=== PATIENT | male | born 1950 | race Caucasian/White ===

== ENCOUNTER 2024-11-28 12:25 | Inpatient (IN) ==
[2024-11-28 14:23] LABS: Basophils # (auto) 0.06 K/uL (0.00-0.20); Basophils % (auto) 0.5 %; Eosinophils # (auto) 0.02 K/uL (0.00-0.50); Eosinophils % (auto) 0.2 %; Hematocrit (blood only) 34.9 % (42.0-52.0); Hemoglobin 12.1 g/dl (14.0-18.0); Immature Granulocytes # (auto) 0.05 K/uL (0.01-0.20); Immature Granulocytes % (auto) 0.4 %; Lymphocytes # (auto) 1.46 K/uL (1.20-3.40); Lymphocytes % (auto) 11.1 %; Mean Corpuscular Hemoglobin 30.6 pg (25.0-34.0); Mean Corpuscular Hgb Conc 34.7 g/dL (32.0-36.0); Mean Corpuscular Volume 88.4 fL (80.0-100.0); Mean Platelet Volume 9.9 fL (9.4-12.4); Monocytes # (auto) 2.03 K/uL (0.11-0.59); Monocytes % (auto) 15.5 %; Neutrophils # (auto) 9.51 K/uL (1.40-6.50); Neutrophils % (auto) 72.3 %; Platelet Count 386 K/uL (130-400); RDW Coefficient of Variation 11.9 % (11.5-14.5); RDW Standard Deviation 38.6 fL (36.4-46.3); Red Blood Count 3.95 M/uL (4.70-6.10); White Blood Count 13.13 K/ul (4.8-10.8)
[2024-11-28 14:39] LABS: Albumin Globulin Ratio 0.9 (0.9-2); Albumin Level 3.3 gm/dl (3.4-5.0); BUN Creatinine Ratio 19.3 (10-20); Bilirubin,Total 0.9 mg/dl (0.2-1.0); Calcium 8.7 mg/dl (8.6-10.3); Creatinine Clr Calc Pharmacy 57.2 ml/min; Globulin 3.8 gm/dl (2.5-4.0); Potassium 4.4 mmol/L (3.5-5.1); Total Protein 7.1 gm/dl (6.0-8.3)
--- NOTE | 2024-11-28 14:58 | Emergency Department Note ---
History of Present Illness General Chief complaint: Toe Injury/Pain Stated complaint: INFECTED TOE ON FOOT Time Seen by Provider: 11/28/24 14:46 History of Present Illness This is a 74-year-old male that presents to the emergency department via private vehicle with complaints of "infected toe on left foot". The patient notes that for some time now he has been having issues with the left second toe. He notes chronic hammertoe/deformity to the left second toe however over the past few months has noted a slow ooze/infection to the left second toe. He then notes that over the winter his boots were a bit tight and that was when the skin opened up overlying the left second toe. Then he notes on November 09 he fell on the ice and the foot struck the ground with some force. He notes that there was some bruising to the left foot. He notes swelling as well. He has had intermittent fever over the past few days that seem to worsen last night. He notes chills as well. He notes history of diabetes but believes that his levels improved therefore did stop medication for this about a year ago. He did have recent cough, cold, congestion but that seem to improve mild lingering cough. No chest pain or shortness of breath. He denies taking any prescription medication at this time. Home Medications Medication Instructions Recorded Confirmed Type ascorbic acid (vitamin C) 1,000 mg 1 g PO DAILY 04/26/23 11/28/24 History tablet (Vitamin C) cholecalciferol (vitamin D3) 125 125 mcg PO DAILY 04/26/23 11/28/24 History mcg (5,000 unit) tablet (Vitamin D3) ondansetron 4 mg disintegrating 4 mg PO Q8H PRN nausea and 04/26/23 11/28/24 Rx tablet vomiting #30 tabs vitamin E 268 mg (400 unit) capsule 0 mg PO DAILY 04/26/23 11/28/24 History Allergies Allergy/AdvReac Type Severity Reaction Status Date / Time onion AdvReac Severe SEVERE GI Verified 11/28/24 11:39 UPSET--BLOATING, GAS DISCOMFORT Past Med/Surg History Problem List (Updated 11/28/24 @ 21:45 by Frederic Cortés PA-C) Hyperglycemia (Acute) Acute osteomyelitis of toe of left foot (Acute) Diabetes Medical History No pertinent family history Surgical History No pertinent past surgical history Social History Smoking Status: Never smoker Preferred Language: Hungarian Feels Safe at Home: Yes Review of Systems A total of 10 systems reviewed and were otherwise negative Physical Exam Vital Signs Vital Signs - 24 hr 11/28/24 12:30 11/28/24 15:45 Temperature 36.4 C L Temperature Source Temporal Artery Scan Pulse Rate 87 Pulse Rate [Apical] 84 Pulse Rhythm Regular Pulse Rhythm [Apical] Regular Pulse Strength Normal Respiratory Rate 20 18 Respiratory Effort / Characteristics Non-Labored Spontaneous Non-Labored Respiratory Depth Normal Normal Blood Pressure 197/79 H Blood Pressure [Left Arm] 207/104 H Blood Pressure Mean 118 Blood Pressure Mean [Left Arm] 138 Blood Pressure Position Sitting Pulse Oximetry 97 98 Oxygen Delivery Method Room Air Room Air Sepsis Recent Fever Within 48 Hours No Sepsis New/Unexplained Change in Mental Status N/A Sepsis Action Taken by Nursing No Action Required VITAL SIGNS - Vital signs and nursing notes were reviewed. Hypertensive, otherwise stable and afebrile. GENERAL -74-year-old male appearing his stated age who is in no acute distress. Communicates well with provider and answers questions appropriately. SKIN -the left second toe is edematous, with a dusky hue, erythema and yellowish pustule type appearance overlying much of the digit. This erythema and edema tracks into the dorsum of the left foot and into the distal left lower extremity. There are several open wounds to the left second toe. HEAD - NC/AT. EYES - PERRL with EOMI bilaterally. Sclera anicteric. NECK - No nuchal rigidity. LUNGS - CTA CARDIAC - RRR EXTREMITIES - No clubbing or peripheral cyanosis. Skin as above. Patient with minimal sensation to the left second toe. No tenderness to palpation. Left dorsalis pedis pulse within normal limits. +5/5 strength noted in UE/LE bilaterally. NEUROLOGIC - Cranial nerves grossly intact. PSYCH -alert, oriented and pleasant on exam. Course Administered Medications Insulin Human Regular 250 (units/ Sodium Chloride) 250 mls @ 1.8 mls/hr IV .Q24H [facility]; Protocol Stop: 12/28/24 15:29 Last Titration: 11/28/24 20:31 Dose: 3 units/hr, 3 mls/hr Documented By: VIKTORIA Co-signed By: BHAVYA Titration: 11/28/24 19:38 Dose: 2.5 units/hr, 2.5 mls/hr Documented By: VIKTORIA Co-signed By: HECTOR Admin: 11/28/24 18:16 Dose: 1.8 units/hr, 1.8 mls/hr Documented By: LEVON Co-signed By: HECTOR Insulin Aspart (Insulin Aspart Per Unit Charge) 0 units SC ACHS VIKKI Stop: 12/28/24 16:29 Last Admin: 11/28/24 18:13 Dose: Not Given Documented By: LEVON Discontinued Medications Cefepime HCl (Maxipime 2000mg) 2,000 mg in 20 mls @ 5 mls/min IV NOW STA; Protocol Stop: 11/28/24 15:12 Last Admin: 11/28/24 15:43 Dose: 5 mls/min Documented By: LEVON Vancomycin HCl 1,500 mg/ (Sodium Chloride) 530 mls @ 200 mls/hr IV NOW ONE Stop: 11/28/24 17:47 Last Infusion: 11/28/24 19:40 Dose: Infused Documented By: Admin: 11/28/24 15:55 Dose: 200 mls/hr Documented By: LEVON Losartan Potassium (Losartan Potassium 25 Mg Tab) 25 mg PO ONE ONE Stop: 11/28/24 17:01 Last Admin: 11/28/24 18:15 Dose: 25 mg Documented By: LEVON Miscellaneous (Stat Iv Infusion Titration Per Protocol) 1 each N/A NOW STA Stop: 11/28/24 15:24 Last Admin: 11/28/24 18:07 Dose: Not Given Documented By: LEVON Medical Decision Making Laboratory Data 11/28/24 13:44 11/28/24 18:37 Lab Results 11/28/24 11/28/24 Range/Units 13:44 15:38 WBC 13.13 H (4.8-10.8) K/ul RBC 3.95 L (4.70-6.10) M/uL Hgb 12.1 L (14.0-18.0) g/dl Hct 34.9 L (42.0-52.0) % MCV 88.4 (80.0-100.0) fL MCH 30.6 (25.0-34.0) pg MCHC 34.7 (32.0-36.0) g/dL RDW Std Deviation 38.6 (36.4-46.3) fL RDW Coeff of Mechelle 11.9 (11.5-14.5) % Plt Count 386 (130-400) K/uL MPV 9.9 (9.4-12.4) fL Immature Gran % (Auto) 0.4 % Neut % (Auto) 72.3 % Lymph % (Auto) 11.1 % Harris % (Auto) 15.5 % Eos % (Auto) 0.2 % Baso % (Auto) 0.5 % Neut # (Auto) 9.51 H (1.40-6.50) K/uL Lymph # (Auto) 1.46 (1.20-3.40) K/uL Harris # (Auto) 2.03 H (0.11-0.59) K/uL Eos # (Auto) 0.02 (0.00-0.50) K/uL Baso # (Auto) 0.06 (0.00-0.20) K/uL Immature Gran # (Auto) 0.05 (0.01-0.20) K/uL Sodium 129 L (136-145) mmol/L Potassium 4.4 (3.5-5.1) mmol/L Chloride 97 L (98-107) mmol/L Carbon Dioxide 27 (21-32) mmol/L Anion Gap 5 (3-11) BUN 22 (6-23) mg/dl Creatinine 1.14 (0.6-1.4) mg/dl Est Cr Clr Drug Dosing 57.2 ml/min eGFR 66.65 BUN/Creatinine Ratio 19.3 (10-20) Glucose 516 H* (70-99(Fasting)) mg/dl Estimat Average Glucose 352 mg/dl Hemoglobin A1c 13.9 H (4.5-5.6) % Lactate 1.3 (0.4-2.0) mmol/L Calcium 8.7 (8.6-10.3) mg/dl Total Bilirubin 0.9 (0.2-1.0) mg/dl AST 14 (13-39) U/L ALT 11 (7-52) U/L Alkaline Phosphatase 124 H (34-104) U/L Total Protein 7.1 (6.0-8.3) gm/dl Albumin 3.3 L (3.4-5.0) gm/dl Globulin 3.8 (2.5-4.0) gm/dl Albumin/Globulin Ratio 0.9 (0.9-2) Procalcitonin 0.32 (0-0.5) ng/ml Imaging Data Radiologist's Impression: Foot X-Ray 11/28/24 14:34 XR foot LT min 3V routine CLINICAL HISTORY: ULCER/WOUND LEFT 2ND TOE X 1 MONTH COMPARISON: None FINDINGS: There are osseous destructive changes at the distal aspect of the second proximal phalanx and proximal aspect of the second middle phalanx. No other osseous destructive change seen. On the lateral view there is an osseous density dorsal to the distal aspect of the second proximal phalanx consistent with displaced fracture fragment from the osseous destruction. No other fracture seen. IMPRESSION: Osteomyelitis at the second toe. ACT 112: Negative or not required by law. Electronically signed by: Jerel Lewis M.D. 11/28/2024 3:57 PM Chest X-Ray 11/28/24 15:22 EXAM: XR chest 1V portable CLINICAL HISTORY: Fever TECHNIQUE: X-ray images of the chest were obtained in AP portable projections. COMPARISON: No prior studies available for comparison. FINDINGS: Pulmonary Parenchyma: Bilateral increased bronchovascular markings No evidence of conslifation, Collapse No evidence of pleural effusion or pleural thickening. Heart and Mediastinum: Heart size and shape are normal. No mediastinal widening or masses. No hilar or mediastinal lymphadenopathy. Bony Thorax: Bony thorax appears intact without fractures or deformities. Soft Tissues: Soft tissues overlying the chest wall are unremarkable. IMPRESSION: 1. Bilateral increased bronchovascular markings (nonspecific) correlate clinically. 2. No acute pulmonary abnormalties Electronically signed by Jean Lacey 11-28-2024 4:50 PM [facility] Narrative Patient was seen and evaluated as above in room A02. Review was performed of triage nursing notes and vital signs. Patient presents for evaluation of left second toe infection. Unfortunately the left toe appears to be in overall poor condition with proximal tracking erythema and edema. The patient has noted intermittent fevers over the past few days. Options of care were discussed with the patient. The patient was seen during a period of elevated volume and acuity in emergency department and already had laboratory studies prior to me evaluating the patient. There is leukocytosis 13.13. Anemia with hemoglobin of 12.1. There is hyponatremia at 129. However glucose was noted to be 516, therefore corrected sodium is closer to 136. IV insulin drip ordered which is felt to be the best way to proceed with management of the hyperglycemia as the patient will require admission. I did verify the order with ED clinical pharmacist. No evidence of kidney or liver failure. I did add on a hemoglobin A1c which is pending at this time. Lactate is normal. Procalcitonin detectable but within normal range at 0.32. Blood culture pending. Wound culture of the left second toe dorsal region was obtained. Empiric antibiotics to include IV vancomycin and IV cefepime also ordered. I did add on a left foot x-ray which does unfortunately confirm the left second toe osteomyelitis. Chest x-ray was also obtained and negative for infiltrate. I do believe that further evaluation and management in the inpatient setting is warranted. Case discussed with the hospitalist service. Please refer to further documentation regarding his stay. I did place gauze overlying left second toe followed by gentle gauze wrap to protect the area pending further assessment in the hospital. In the evaluation and treatment of this patient the following differential diagnoses were entertained: Fracture, dislocation, subluxation, contusion, sprain, strain, osteomyelitis, among others. Impression & Plan Acute osteomyelitis of toe of left foot, Hyperglycemia Discharge Plan Visit Data Chief Complaint: Toe Injury/Pain Stated Complaint: INFECTED TOE ON FOOT ED Provider: Ruben Hyde ED Midlevel Provider: Frederic Cortés Discharge Problem: Acute osteomyelitis of toe of left foot, Hyperglycemia Patient Disposition: Admitted As Inpatient Condition: Good Discharge Instructions Interventions: ED Discharge Assessment Last Done: 11/28/24 19:51
[2024-11-28] MEDS ORDERED: VANCOMYCIN CONSULT ACTIVE PRN (15:09)
[2024-11-28] MEDS ORDERED: DEXTROSE 50% 50 ML SYRINGE IV PRN (15:30)
[2024-11-28] MEDS ORDERED: CARBOHYDRATES FOR HYPOGLYCEMIA PO PRN (15:30)
[2024-11-28] MEDS ORDERED: GLUCOSE 40% GEL 15 GM TUBE PO PRN (15:30)
[2024-11-28] MEDS ORDERED: GLUCAGON FOR INJ 1 MG VIAL SQ PRN (15:30)
[2024-11-28] MEDS ORDERED: GLUCOSE 10 TAB/TUBE PO PRN (15:30)
[2024-11-28] MEDS: CEFEPIME 2000MG 2,000 MG/20 ML SYR IV STA (15:43)
[2024-11-28] MEDS: VANCOMYCIN HCL 1,500 MG in SODIUM CHLORIDE 0.9% 500 ML IV ONE (15:55)
--- NOTE | 2024-11-28 15:58 | XRay Report ---
XR foot LT min 3V routine CLINICAL HISTORY: ULCER/WOUND LEFT 2ND TOE X 1 MONTH COMPARISON: None FINDINGS: There are osseous destructive changes at the distal aspect of the second proximal phalanx and proximal aspect of the second middle phalanx. No other osseous destructive change seen. On the la teral view there is an osseous density dorsal to the distal aspect of the second proximal phalanx con sistent with displaced fracture fragment from the osseous destruction. No other fracture seen. IMPRESSION: Osteomyelitis at the second toe. ACT 112: Negative or not required by law. Electronically signed by: Jerel Lewis M.D. 11/28/2024 3:57 PM
[2024-11-28] MEDS ORDERED: PHARMACY GLYCEMIC MGMT CONSULT PRN (16:29)
[2024-11-28] MEDS ORDERED: ONDANSETRON INJ 2 MG/ML 2 ML VIAL IV PRN (16:33)
[2024-11-28] MEDS ORDERED: MAGNESIUM HYDROXIDE SUSP 30 ML UDC PO PRN (16:33)
[2024-11-28] MEDS ORDERED: ALUMINUM/MAGNESIUM SUSP 30 ML UDC PO PRN (16:33)
--- NOTE | 2024-11-28 16:43 | History & Physical Report ---
Date of Service November 28, 2024 Assessment & Plan (1) Diabetes: Plan Left toe osteomyelitis: WBC elevated, not in sepsis at presentation. Continue with cefepime and vancomycin, add probiotic, podiatry consult. Follow admitting blood and wound culture. Infectious disease consult once we have more results. Uncontrolled diabetes/hyperglycemia: Patient was started on insulin drip, will consult glycemic pharmacy for help w/ Mx. Consult nurse informatics educator, patient has self discontinued insulin in the past. Start carbohydrate consistent diet. Will need diabetic medications and extensive educations prior to discharge. A1c pending Pseudohyponatremia: In the setting of hyperglycemia, expect to improve with improvement in blood glucose level. Repeat BMP 7 PM and in AM. Hypertensive urgency: Blood pressure elevated, the highest noted in the ED was 197/79 mmHg. Will add losartan, as needed blood pressure medication. Blood pressure medication needs to be uptitrated. Will get echo given lack of prior PCP follow-ups. DVT prophylaxis: Heparin subcu Full code History of Present Illness Chief Complaint: left 2nd toe infection Primary Care Provider: LINDA BOWLES 74-year-old male with prior history of diabetes diagnosed few years ago, on insulin for less than a year and self discontinued the insulin presents to the ED with complaint of worsening left second toe infection. Patient reports he has hammertoe with chronic injury at the top of left second toe with occasional small drainages. He fell on November 09 and hit his left shoulder and left toe, denies head trauma and loss of consciousness. He tripped on ice. Patient reports initially there was blue and blacl discoloration at the base of the second toe, and he sustained wound at the site of prior chronic injury which worsened for a few days and then got better. He started having fever since November 11 daily, and he had no fever since last few days [employer] and again developed fever last evening, measured at one 101.9F. Now the blue-black discoloration has disappeared and the wound has enlarged in the second toe with purulent drainage, erythematous second toe spreading to the entire foot along with swelling. Patient reports that he never feels pain in his lower extremities since many years. So he does not complain of pain. Patient denies nausea/vomiting/belly pain/acute changes in bowel or bladder or appetite habits. Patient denies tobacco use/alcohol use/recreational drug use. Full code Patient self discontinued his insulin in the past, is not on any oral medications at home per pt. Plan of care discussed with the patient and his at bedside who voiced understanding and was agreeable. Allergies Allergy/AdvReac Type Severity Reaction Status Date / Time onion AdvReac Severe SEVERE GI Verified 11/28/24 11:39 UPSET--BLOATING, GAS DISCOMFORT Home Medications Medication Instructions Recorded Confirmed Type ascorbic acid (vitamin C) 1,000 mg 1 g PO DAILY 04/26/23 11/28/24 History tablet (Vitamin C) cholecalciferol (vitamin D3) 125 125 mcg PO DAILY 04/26/23 11/28/24 History mcg (5,000 unit) tablet (Vitamin D3) ondansetron 4 mg disintegrating 4 mg PO Q8H PRN nausea and 04/26/23 11/28/24 Rx tablet vomiting #30 tabs vitamin E 268 mg (400 unit) capsule 0 mg PO DAILY 04/26/23 11/28/24 History Past Med/Surg History Problem List Diabetes Medical History No pertinent family history Surgical History No pertinent past surgical history Social History Smoking Status: Never smoker Preferred Language: Setswana Feels Safe at Home: Yes Review of Systems Review of Systems: Negative otherwise mentioned in HPI. Physical Exam Physical Exam: GENERAL: Alert and oriented x3. NAD, on RA. HEENT: No pallor, no icterus. Pupils equal, round and reactive to light. Oral mucosa moist. NECK: No JVD, no neck masses. HEART: S1 and S2 heard. Regular rate and rhythm. No murmur, no gallop. RESPIRATORY SYSTEM: Normal AP diameter. No accessory muscle use. No wheezing, no crackles. ABDOMEN: Soft, bowel sounds present, nontender, no distention. CENTRAL NERVOUS SYSTEM: No facial droop. Speech is clear. Obeys simple commands. Moves extremities. EXTREMITIES: RLE - No edema, no erythema seen. LLE: left 2nd toe w/ purulent wound, erythema/swelling spreading to the foot and distal leg. Non tender. Lt shoulder w/ tender rom, LUE weak. Results & Data Results & Data Vital Signs (Past 12 Hours) Vital Signs Temp Pulse Resp BP Pulse Ox O2 Del Method 11/28/24 12:30 36.4 C L 87 20 197/79 H 97 Room Air
--- NOTE | 2024-11-28 17:11 | XRay Report ---
EXAM: XR chest 1V portable CLINICAL HISTORY: Fever TECHNIQUE: X-ray images of the chest were obtained in AP portable projections. COMPARISON: No prior studies available for comparison. FINDINGS: Pulmonary Parenchyma: Bilateral increased bronchovascular markings No evidence of conslifation, Collapse No evidence of pleural effusion or pleural thickening. Heart and Mediastinum: Heart size and shape are normal. No mediastinal widening or masses. No hilar or mediastinal lymphadenopathy. Bony Thorax: Bony thorax appears intact without fractures or deformities. Soft Tissues: Soft tissues overlying the chest wall are unremarkable. IMPRESSION: 1. Bilateral increased bronchovascular markings (nonspecific) correlate clinically. 2. No acute pulmonary abnormalties Electronically signed by Jean Lacey 11-28-2024 4:50 PM
[2024-11-28] MEDS: STAT IV Infusion **Titration per Protocol STA (18:07)
[2024-11-28] MEDS: INSULIN ASPART PER UNIT CHARGE SC SCH (18:13)
[2024-11-28] MEDS: LOSARTAN POTASSIUM 25 MG TAB PO ONE (18:15)
[2024-11-28] MEDS: INSULIN REGULAR 250 UNITS in SODIUM CHLORIDE 0.9% 247.5 ML IV SCH (18:16)
[2024-11-28 19:10] LABS: Calcium 8.7 mg/dl (8.6-10.3); Creatinine Clr Calc Pharmacy 59.2 ml/min; Potassium 4.2 mmol/L (3.5-5.1)
[2024-11-28 20:44] LABS: Estimated Average Glucose 352 mg/dl; Hemoglobin A1C 13.9 % (4.5-5.6)
[2024-11-28] MEDS: MODERATE STRESS LEVEL ONE (21:59)
[2024-11-28] MEDS: INSULIN PROTOCOL GOAL RANGE ONE (22:00)
[2024-11-28] MEDS: DICLOFENAC SOD 1% GEL 100 GM TUBE EXT SCH (22:32)
[2024-11-28] MEDS: HEPARIN SOD 5,000 UNIT/0.5 ML VIAL SQ SCH (22:32)
[2024-11-28] MEDS: CEFEPIME 2000MG 2,000 MG/20 ML SYR IV SCH (22:33)
[2024-11-28] MEDS: hydrALAZINE HCL 20 MG/ML VIAL IV PRN (22:34)
[2024-11-29 00:22] LABS: BUN Creatinine Ratio 19.3 (10-20); Calcium 8.1 mg/dl (8.6-10.3); Creatinine Clr Calc Pharmacy 55.9 ml/min; Potassium 3.8 mmol/L (3.5-5.1)
[2024-11-29] MEDS: VANCOMYCIN HCL 1,250 MG in SODIUM CHLORIDE 0.9% 250 ML IV SCH (04:09)
[2024-11-29 06:59] LABS: Hemoglobin 10.5 g/dl (14.0-18.0); Mean Corpuscular Hemoglobin 30.5 pg (25.0-34.0); Mean Corpuscular Volume 87.2 fL (80.0-100.0); Mean Platelet Volume 9.6 fL (9.4-12.4); Platelet Count 332 K/uL (130-400); RDW Coefficient of Variation 11.9 % (11.5-14.5); RDW Standard Deviation 38.2 fL (36.4-46.3); Red Blood Count 3.44 M/uL (4.70-6.10); White Blood Count 12.83 K/ul (4.8-10.8)
[2024-11-29 07:31] LABS: BUN Creatinine Ratio 19.4 (10-20); Calcium 7.8 mg/dl (8.6-10.3); Creatinine Clr Calc Pharmacy 61.9 ml/min; Magnesium 1.8 mg/dl (1.7-2.4); Phosphorus 3.2 mg/dl (2.5-4.9); Potassium 3.6 mmol/L (3.5-5.1)
[2024-11-29] MEDS ORDERED: LANTUS PER UNIT CHARGE SC SCH (07:45)
[2024-11-29] MEDS: ADVANCED PROBIOTIC 625 MG CAPSULE PO SCH (08:16)
[2024-11-29] MEDS: LOSARTAN POTASSIUM 25 MG TAB PO SCH (08:16)
--- NOTE | 2024-11-29 08:28 | Hospitalist Progress Note ---
Date of Service November 29, 2024 Assessment & Plan (1) Diabetes: Plan Left toe osteomyelitis Bacteremia (secondary to above): WBC elevated Started on cefepime and vancomycin on admission, will cont. for now Podiatry consulted and discussed with - plan for OR/ amputation later today Blood cultx - Gram posit. cocci in clusters wound culture - posit. for Staph aureus will repeat blood cultx and will consult w/ ID Uncontrolled diabetes/hyperglycemia: Current A1c 13.9% patient has self discontinued insulin in the past Patient was started on insulin drip initially in ED, now stopped Glycemic pharmacy consulted clinical informatics educator consulted - recommend to DC on Metformin BID and once daily Lantus His testing supplies are over the counter so he won't need a script for that. He will need a script for insulin pen needles (32 gauge x 5/32" 4 mm) with his Lantus pen. can get him a savings card for $35.00 per month for the Lantus and bring it to him on Monday. DE will be back Monday for more teaching. Pseudohyponatremia: In the setting of hyperglycemia Current Na 136, cont. to monitor Hypertensive urgency: Blood pressure elevated, the highest noted in the ED was 197/79 mmHg. losartan added on admission, as needed blood pressure medication. Blood pressure medication needs to be uptitrated. echo ordered given lack of prior PCP follow-ups. Echo - LV is normal in size. severe concentric LVH. LV wall motion is normal. LV EF 65-70%. Grade 1 diastolic dysfunction. Aortic valve sclerosis mild, without significant aortic valvular stenosis. The aortic root is normal in size DVT prophylaxis: Heparin subcu Full code Admission and Anticipated Discharge Date Admission Date: November 28, 2024 Subjective Pt seen in follow up of 2nd toe osteo, uncontrolled DM (hyperglycemia) Pt lying in bed in NAD made npo early AM pt is feeling well, in good spirits, present at the bedside no chest pain, shortness of breath, no abd pain, n/v Discussed w/ podiatry - plan for OR/ amputation later today blood cultx posit. Review of Systems Review of Systems: All systems reviewed & are unremarkable except as noted in Subjective Physical Exam Physical Exam: GENERAL: Alert and oriented x3. NAD, on RA. HEENT: NC/AT. Pupils equal, round and reactive to light. Oral mucosa moist. NECK: No JVD, no neck masses. HEART: Regular rate and rhythm. No murmur RESPIRATORY: Normal AP diameter. No accessory muscle use. No wheezing, no crackles. ABDOMEN: Soft, bowel sounds present, nontender, no distention. NEURO: awake, alert, oriented, answers appropriately. No facial droop. Speech is clear. Moves extremities. EXTREMITIES: RLE - No edema, no erythema seen. LLE: left 2nd toe w/ purulent wound, erythema/swelling spreading to the foot and distal leg. Non tender. Lt shoulder w/ tender rom, LUE weak. Results & Data Results & Data Vital Signs (Past 12 Hours) Vital Signs Temp Pulse Pulse Pulse Resp BP BP 11/29/24 07:40 37.2 C 70 14 178/76 H 11/29/24 07:36 37.0 C 73 18 160/79 H 11/29/24 05:45 82 11/29/24 03:23 37.7 C H 78 18 163/79 H 11/28/24 23:01 82 11/28/24 22:07 37.6 C H 86 18 198/90 H Pulse Ox O2 Del Method 11/29/24 07:40 98 Room Air 11/29/24 07:36 97 Room Air 11/29/24 05:45 11/29/24 03:23 98 Room Air 11/28/24 23:01 11/28/24 22:07 97 Room Air Laboratory Results 11/29/24 11/29/24 11/29/24 Range/Units 07:56 06:59 06:21 WBC 12.83 H (4.8-10.8) K/ul RBC 3.44 L (4.70-6.10) M/uL Hgb 10.5 L (14.0-18.0) g/dl Hct 30.0 L (42.0-52.0) % MCV 87.2 (80.0-100.0) fL MCH 30.5 (25.0-34.0) pg MCHC 35.0 (32.0-36.0) g/dL RDW Std Deviation 38.2 (36.4-46.3) fL RDW Coeff of Mechelle 11.9 (11.5-14.5) % Plt Count 332 (130-400) K/uL MPV 9.6 (9.4-12.4) fL Immature Gran % (Auto) % Neut % (Auto) % Lymph % (Auto) % [place] % (Auto) % Eos % (Auto) % Baso % (Auto) % Neut # (Auto) (1.40-6.50) K/uL Lymph # (Auto) (1.20-3.40) K/uL [place] # (Auto) (0.11-0.59) K/uL Eos # (Auto) (0.00-0.50) K/uL Baso # (Auto) (0.00-0.20) K/uL Immature Gran # (Auto) (0.01-0.20) K/uL Sodium 136 (136-145) mmol/L Potassium 3.6 (3.5-5.1) mmol/L Chloride 104 (98-107) mmol/L Carbon Dioxide 27 (21-32) mmol/L Anion Gap 5 (3-11) BUN 20 (6-23) mg/dl Creatinine 1.03 (0.6-1.4) mg/dl Est Cr Clr Drug Dosing 61.9 ml/min eGFR 75.28 BUN/Creatinine Ratio 19.4 (10-20) Glucose 110 H (70-99(Fasting)) mg/dl POC Glucose 115 H 114 H (70-99) mg/dl Estimat Average Glucose mg/dl Hemoglobin A1c (4.5-5.6) % Lactate (0.4-2.0) mmol/L Calcium 7.8 L (8.6-10.3) mg/dl Phosphorus 3.2 (2.5-4.9) mg/dl Magnesium 1.8 (1.7-2.4) mg/dl Total Bilirubin (0.2-1.0) mg/dl AST (13-39) U/L ALT (7-52) U/L Alkaline Phosphatase (34-104) U/L Total Protein (6.0-8.3) gm/dl Albumin (3.4-5.0) gm/dl Globulin (2.5-4.0) gm/dl Albumin/Globulin Ratio (0.9-2) Procalcitonin (0-0.5) ng/ml 11/29/24 11/29/24 11/29/24 Range/Units 05:05 03:05 02:05 WBC (4.8-10.8) K/ul RBC (4.70-6.10) M/uL Hgb (14.0-18.0) g/dl Hct (42.0-52.0) % MCV (80.0-100.0) fL MCH (25.0-34.0) pg MCHC (32.0-36.0) g/dL RDW Std Deviation (36.4-46.3) fL RDW Coeff of Mechelle (11.5-14.5) % Plt Count (130-400) K/uL MPV (9.4-12.4) fL Immature Gran % (Auto) % Neut % (Auto) % Lymph % (Auto) % [place] % (Auto) % Eos % (Auto) % Baso % (Auto) % Neut # (Auto) (1.40-6.50) K/uL Lymph # (Auto) (1.20-3.40) K/uL [place] # (Auto) (0.11-0.59) K/uL Eos # (Auto) (0.00-0.50) K/uL Baso # (Auto) (0.00-0.20) K/uL Immature Gran # (Auto) (0.01-0.20) K/uL Sodium (136-145) mmol/L Potassium (3.5-5.1) mmol/L Chloride (98-107) mmol/L Carbon Dioxide (21-32) mmol/L Anion Gap (3-11) BUN (6-23) mg/dl Creatinine (0.6-1.4) mg/dl Est Cr Clr Drug Dosing ml/min eGFR BUN/Creatinine Ratio (10-20) Glucose (70-99(Fasting)) mg/dl POC Glucose 126 H 112 H 120 H (70-99) mg/dl Estimat Average Glucose mg/dl Hemoglobin A1c (4.5-5.6) % Lactate (0.4-2.0) mmol/L Calcium (8.6-10.3) mg/dl Phosphorus (2.5-4.9) mg/dl Magnesium (1.7-2.4) mg/dl Total Bilirubin (0.2-1.0) mg/dl AST (13-39) U/L ALT (7-52) U/L Alkaline Phosphatase (34-104) U/L Total Protein (6.0-8.3) gm/dl Albumin (3.4-5.0) gm/dl Globulin (2.5-4.0) gm/dl Albumin/Globulin Ratio (0.9-2) Procalcitonin (0-0.5) ng/ml 11/29/24 11/29/24 11/28/24 Range/Units 01:04 00:04 23:47 WBC (4.8-10.8) K/ul RBC (4.70-6.10) M/uL Hgb (14.0-18.0) g/dl Hct (42.0-52.0) % MCV (80.0-100.0) fL MCH (25.0-34.0) pg MCHC (32.0-36.0) g/dL RDW Std Deviation (36.4-46.3) fL RDW Coeff of Mechelle (11.5-14.5) % Plt Count (130-400) K/uL MPV (9.4-12.4) fL Immature Gran % (Auto) % Neut % (Auto) % Lymph % (Auto) % [place] % (Auto) % Eos % (Auto) % Baso % (Auto) % Neut # (Auto) (1.40-6.50) K/uL Lymph # (Auto) (1.20-3.40) K/uL [place] # (Auto) (0.11-0.59) K/uL Eos # (Auto) (0.00-0.50) K/uL Baso # (Auto) (0.00-0.20) K/uL Immature Gran # (Auto) (0.01-0.20) K/uL Sodium 133 L (136-145) mmol/L Potassium 3.8 (3.5-5.1) mmol/L Chloride 104 (98-107) mmol/L Carbon Dioxide 24 (21-32) mmol/L Anion Gap 5 (3-11) BUN 22 (6-23) mg/dl Creatinine 1.14 (0.6-1.4) mg/dl Est Cr Clr Drug Dosing 55.9 ml/min eGFR 66.65 BUN/Creatinine Ratio 19.3 (10-20) Glucose 153 H (70-99(Fasting)) mg/dl POC Glucose 135 H 134 H (70-99) mg/dl Estimat Average Glucose mg/dl Hemoglobin A1c (4.5-5.6) % Lactate (0.4-2.0) mmol/L Calcium 8.1 L (8.6-10.3) mg/dl Phosphorus (2.5-4.9) mg/dl Magnesium (1.7-2.4) mg/dl Total Bilirubin (0.2-1.0) mg/dl AST (13-39) U/L ALT (7-52) U/L Alkaline Phosphatase (34-104) U/L Total Protein (6.0-8.3) gm/dl Albumin (3.4-5.0) gm/dl Globulin (2.5-4.0) gm/dl Albumin/Globulin Ratio (0.9-2) Procalcitonin (0-0.5) ng/ml 11/28/24 11/28/24 11/28/24 Range/Units 23:08 22:04 20:17 WBC (4.8-10.8) K/ul RBC (4.70-6.10) M/uL Hgb (14.0-18.0) g/dl Hct (42.0-52.0) % MCV (80.0-100.0) fL MCH (25.0-34.0) pg MCHC (32.0-36.0) g/dL RDW Std Deviation (36.4-46.3) fL RDW Coeff of Mechelle (11.5-14.5) % Plt Count (130-400) K/uL MPV (9.4-12.4) fL Immature Gran % (Auto) % Neut % (Auto) % Lymph % (Auto) % [place] % (Auto) % Eos % (Auto) % Baso % (Auto) % Neut # (Auto) (1.40-6.50) K/uL Lymph # (Auto) (1.20-3.40) K/uL [place] # (Auto) (0.11-0.59) K/uL Eos # (Auto) (0.00-0.50) K/uL Baso # (Auto) (0.00-0.20) K/uL Immature Gran # (Auto) (0.01-0.20) K/uL Sodium (136-145) mmol/L Potassium (3.5-5.1) mmol/L Chloride (98-107) mmol/L Carbon Dioxide (21-32) mmol/L Anion Gap (3-11) BUN (6-23) mg/dl Creatinine (0.6-1.4) mg/dl Est Cr Clr Drug Dosing ml/min eGFR BUN/Creatinine Ratio (10-20) Glucose (70-99(Fasting)) mg/dl POC Glucose 180 H 222 H 402 H* (70-99) mg/dl Estimat Average Glucose mg/dl Hemoglobin A1c (4.5-5.6) % Lactate (0.4-2.0) mmol/L Calcium (8.6-10.3) mg/dl Phosphorus (2.5-4.9) mg/dl Magnesium (1.7-2.4) mg/dl Total Bilirubin (0.2-1.0) mg/dl AST (13-39) U/L ALT (7-52) U/L Alkaline Phosphatase (34-104) U/L Total Protein (6.0-8.3) gm/dl Albumin (3.4-5.0) gm/dl Globulin (2.5-4.0) gm/dl Albumin/Globulin Ratio (0.9-2) Procalcitonin (0-0.5) ng/ml 11/28/24 11/28/24 11/28/24 Range/Units 19:25 19:18 18:37 WBC (4.8-10.8) K/ul RBC (4.70-6.10) M/uL Hgb (14.0-18.0) g/dl Hct (42.0-52.0) % MCV (80.0-100.0) fL MCH (25.0-34.0) pg MCHC (32.0-36.0) g/dL RDW Std Deviation (36.4-46.3) fL RDW Coeff of Mechelle (11.5-14.5) % Plt Count (130-400) K/uL MPV (9.4-12.4) fL Immature Gran % (Auto) % Neut % (Auto) % Lymph % (Auto) % [place] % (Auto) % Eos % (Auto) % Baso % (Auto) % Neut # (Auto) (1.40-6.50) K/uL Lymph # (Auto) (1.20-3.40) K/uL [place] # (Auto) (0.11-0.59) K/uL Eos # (Auto) (0.00-0.50) K/uL Baso # (Auto) (0.00-0.20) K/uL Immature Gran # (Auto) (0.01-0.20) K/uL Sodium 130 L (136-145) mmol/L Potassium 4.2 (3.5-5.1) mmol/L Chloride 100 (98-107) mmol/L Carbon Dioxide 23 (21-32) mmol/L Anion Gap 7 (3-11) BUN 22 (6-23) mg/dl Creatinine 1.10 (0.6-1.4) mg/dl Est Cr Clr Drug Dosing 59.2 ml/min eGFR 69.57 BUN/Creatinine Ratio 20.0 (10-20) Glucose 410 H* (70-99(Fasting)) mg/dl POC Glucose 434 H* 454 H* (70-99) mg/dl Estimat Average Glucose mg/dl Hemoglobin A1c (4.5-5.6) % Lactate (0.4-2.0) mmol/L Calcium 8.7 (8.6-10.3) mg/dl Phosphorus (2.5-4.9) mg/dl Magnesium (1.7-2.4) mg/dl Total Bilirubin (0.2-1.0) mg/dl AST (13-39) U/L ALT (7-52) U/L Alkaline Phosphatase (34-104) U/L Total Protein (6.0-8.3) gm/dl Albumin (3.4-5.0) gm/dl Globulin (2.5-4.0) gm/dl Albumin/Globulin Ratio (0.9-2) Procalcitonin (0-0.5) ng/ml 11/28/24 11/28/24 Range/Units 15:38 13:44 WBC 13.13 H (4.8-10.8) K/ul RBC 3.95 L (4.70-6.10) M/uL Hgb 12.1 L (14.0-18.0) g/dl Hct 34.9 L (42.0-52.0) % MCV 88.4 (80.0-100.0) fL MCH 30.6 (25.0-34.0) pg MCHC 34.7 (32.0-36.0) g/dL RDW Std Deviation 38.6 (36.4-46.3) fL RDW Coeff of Mechelle 11.9 (11.5-14.5) % Plt Count 386 (130-400) K/uL MPV 9.9 (9.4-12.4) fL Immature Gran % (Auto) 0.4 % Neut % (Auto) 72.3 % Lymph % (Auto) 11.1 % [place] % (Auto) 15.5 % Eos % (Auto) 0.2 % Baso % (Auto) 0.5 % Neut # (Auto) 9.51 H (1.40-6.50) K/uL Lymph # (Auto) 1.46 (1.20-3.40) K/uL [place] # (Auto) 2.03 H (0.11-0.59) K/uL Eos # (Auto) 0.02 (0.00-0.50) K/uL Baso # (Auto) 0.06 (0.00-0.20) K/uL Immature Gran # (Auto) 0.05 (0.01-0.20) K/uL Sodium 129 L (136-145) mmol/L Potassium 4.4 (3.5-5.1) mmol/L Chloride 97 L (98-107) mmol/L Carbon Dioxide 27 (21-32) mmol/L Anion Gap 5 (3-11) BUN 22 (6-23) mg/dl Creatinine 1.14 (0.6-1.4) mg/dl Est Cr Clr Drug Dosing 57.2 ml/min eGFR 66.65 BUN/Creatinine Ratio 19.3 (10-20) Glucose 516 H* (70-99(Fasting)) mg/dl POC Glucose (70-99) mg/dl Estimat Average Glucose 352 mg/dl Hemoglobin A1c 13.9 H (4.5-5.6) % Lactate 1.3 (0.4-2.0) mmol/L Calcium 8.7 (8.6-10.3) mg/dl Phosphorus (2.5-4.9) mg/dl Magnesium (1.7-2.4) mg/dl Total Bilirubin 0.9 (0.2-1.0) mg/dl AST 14 (13-39) U/L ALT 11 (7-52) U/L Alkaline Phosphatase 124 H (34-104) U/L Total Protein 7.1 (6.0-8.3) gm/dl Albumin 3.3 L (3.4-5.0) gm/dl Globulin 3.8 (2.5-4.0) gm/dl Albumin/Globulin Ratio 0.9 (0.9-2) Procalcitonin 0.32 (0-0.5) ng/ml Medications Administered Current Inpatient Medications Acetaminophen (Acetaminophen 325 Mg Tab) 650 mg PO Q4H PRN PRN Reason: Pain or Fever Stop: 12/28/24 16:32 Al Hydrox/Mg Hydrox/Simethicone (Aluminum/Magnesium Susp 30 Ml Udc) 15 ml PO Q4H PRN PRN Reason: Dyspepsia Stop: 12/28/24 16:32 Dextrose (Dextrose 50% 50 Ml Syringe) 25 - 50 ml IV UD PRN; Protocol PRN Reason: Hypoglycemia Protocol Stop: 12/28/24 15:29 Diclofenac Sodium (Diclofenac Sod 1% Gel 100 Gm Tube) 2 gm EXT Q6H VIKKI; Protocol Stop: 12/28/24 19:59 Last Admin: 11/29/24 01:03 Dose: Not Given Glucagon (Glucagon For Inj 1 Mg Vial) 1 mg SQ UD PRN; Protocol PRN Reason: Hypoglycemia Protocol Stop: 12/28/24 15:29 Glucose (Glucose 40% Gel 15 Gm Tube) 15 - 30 gm PO UD PRN; Protocol PRN Reason: Hypoglycemia Protocol Stop: 12/28/24 15:29 Glucose (Glucose 10 Tab/Tube) 4 - 8 tab PO UD PRN; Protocol PRN Reason: Hypoglycemia Protocol Stop: 12/28/24 15:29 Heparin Sodium (Porcine) (Heparin Sod 5,000 Unit/0.5 Ml Vial) 5,000 units SQ Q12 VIKKI Stop: 12/28/24 20:59 Last Admin: 11/29/24 08:19 Dose: 5,000 units Hydralazine HCl (Hydralazine Hcl 20 Mg/Ml Vial) 10 mg IV Q6H PRN PRN Reason: HTN Stop: 12/28/24 16:59 Last Admin: 11/28/24 22:34 Dose: 10 mg Cefepime HCl (Maxipime 2000mg) 2,000 mg in 20 mls @ 5 mls/min IV Q8H [facility]; Protocol Stop: 01/09/25 21:59 Last Admin: 11/29/24 05:38 Dose: 5 mls/min Vancomycin HCl 1,250 mg/ (Sodium Chloride) 275 mls @ 200 mls/hr IV Q24H [facility] Stop: 12/01/24 04:59 Last Infusion: 11/29/24 05:37 Dose: Infused Insulin Aspart (Insulin Aspart Per Unit Charge) 0 units SC ACHS [facility] Stop: 12/29/24 07:44 Insulin Glargine (Lantus Per Unit Charge) 15 units SC DAILY [facility] Stop: 12/29/24 07:44 Lactobacillus Acidophilus (Advanced Probiotic 625 Mg Capsule) 1,250 mg PO DAILY [facility] Stop: 12/29/24 08:59 Last Admin: 11/29/24 08:16 Dose: 1,250 mg Losartan Potassium (Losartan Potassium 25 Mg Tab) 25 mg PO QAM [facility] Stop: 12/29/24 08:59 Magnesium Hydroxide (Magnesium Hydroxide Susp 30 Ml Udc) 30 ml PO Q12H PRN PRN Reason: Constipation Stop: 12/28/24 16:32 Miscellaneous (Carbohydrates For Hypoglycemia ) 15 - 30 gm PO UD PRN PRN Reason: Hypoglycemia Treatment Stop: 12/28/24 15:29 Miscellaneous Information (Vancomycin Consult Active) 1 each N/A UD PRN PRN Reason: Consult Stop: 12/28/24 15:08 Miscellaneous Information (Pharmacy Glycemic Mgmt Consult) 1 each N/A UD PRN; Protocol PRN Reason: Consult Stop: 12/28/24 16:28 Ondansetron HCl (Ondansetron Inj 2 Mg/Ml 2 Ml Vial) 4 mg IV Q6H PRN PRN Reason: Nausea Stop: 12/28/24 16:32 Potassium Chloride (Potassium Chloride Crtab 20 Meq Tabcr) 40 meq PO NOW STA Stop: 11/29/24 08:20
--- NOTE | 2024-11-29 08:47 | XRay Report ---
EXAM: XR shoulder LT min 2V routine CLINICAL HISTORY: Fall, tender rom. TECHNIQUE: X-ray images of the left shoulder were obtained in anteroposterior (AP) internal, external, Y-view projections. COMPARISON: No prior studies available for comparison. FINDINGS: Bone Structure: Bone structure is normal and aligned. No evidence of fracture or dislocation. Humeral head is properly positioned in the glenoid fossa. No osseous lesions or abnormalities identified. Joint Spaces: Mild glenohumeral and acromioclavicular joints arthropathy. No evidence of joint effusion or subluxation. Soft Tissues: Soft tissues appear normal and unremarkable. No soft tissue swelling, calcifications, or foreign bodies noted. IMPRESSION: 1. No evidence of acute fracture. 2. Mild glenohumeral and acromioclavicular joints arthropathy. Disclaimer: A subtle bone abnormality or fracture may not be readily apparent on X-rays, thus clinical correlation and further imaging including follow-up CT, MRI, or follow-up X-rays are advised as needed. Electronically signed by Jaen Lacey 11-29-2024 08:47 AM
[2024-11-29] MEDS: INSULIN ASPART PER UNIT CHARGE SC SCH (08:48)
[2024-11-29] MEDS: LANTUS PER UNIT CHARGE SC STA (08:56)
[2024-11-29] MEDS: POTASSIUM CHLORIDE CRTAB 20 MEQ TABCR PO STA (08:56)
--- NOTE | 2024-11-29 09:02 | Pharmacy Report ---
Pharmacy PK ABX Note - Date of Service November 29, 2024 - Assessment and Plan Assessment 74 year old M receiving Vancomycin and Cefepime for treatment of diabetic foot infection with osteomyelitis of L second toe per radiologists read of XR. * Day #2 of antimicrobial therapy. * Low grade fever. Leukocytosis of 12.8k. Renal fxn improved slightly today but stable. * Blood and toe cx pending. NPO for possible surgical intervention by podiatry today. ID likely to be consulted per attending. Plan Vancomycin * Loading dose: 1500 mg IV x 1 * Maintenance dose: 1250 mg IV every 24 hours * Regimen is predicted to achieve target AUC/LAKSHMI of 400-600 mg/L.hr * Level will be ordered in next 48-72 hours. Cefepime * 2000 mg IV every 8 hours Pharmacy will continue to follow and will adjust dose/frequency as necessary. Thank you. Pharmacy has transitioned to AUC monitoring for vancomycin. AUC/LAKSHMI is the preferred PK/PD target and is associated with decreased risk of nephrotoxicity compared to traditional trough targets.
--- NOTE | 2024-11-29 09:08 | Pharmacy Report ---
Pharmacy Glycemic Short Note 2 - Date of Service November 29, 2024 - Glycemic Short BSG Results (Last 24 hours): 11/28/24 11/28/24 11/28/24 13:44 18:37 19:18 Glucose 516 H* 410 H* POC Glucose 454 H* 11/28/24 11/28/24 11/28/24 19:25 20:17 22:04 Glucose POC Glucose 434 H* 402 H* 222 H 11/28/24 11/28/24 11/29/24 23:08 23:47 00:04 Glucose 153 H POC Glucose 180 H 134 H 11/29/24 11/29/24 11/29/24 01:04 02:05 03:05 Glucose POC Glucose 135 H 120 H 112 H 11/29/24 11/29/24 11/29/24 05:05 06:21 06:59 Glucose 110 H POC Glucose 126 H 114 H 11/29/24 07:56 Glucose POC Glucose 115 H OUTPATIENT ANTIDIABETIC REGIMEN: * None HbA1c: * 13.9% (11/28/24) ASSESSMENT: * 74 yo M admitted on 11/28/24 secondary to hyperglycemia and diabetic foot infection. Pharmacy has been consulted to assist with inpatient glycemic management. Patient is a Type 2 diabetic as an outpatient. Please refer to outpatient regimen and most recent HbA1c above. Of note, patient has self discontinued insulin in the past. * Significant hyperglycemia with presenting BSG of 516 mg/dL upon admission. [facility] sn't take outpatient antidiabetic meds so A1c is significantly elevated. Required an insulin drip last evening. BSGs improved quickly overnight. * Discontinued insulin drip this AM. Will transition to SC basal/bolus. Patient is NPO right now for possible surgical intervention. Therefore will start Novolog based on weight/stress of 2 and give a low dose of basal. If diet ordered with lunch, will give an additional basal dose as trying to target 15- 20 units basal/day. PLAN FOR INPATIENT GLYCEMIC CONTROL: * Basal insulin * Lantus 5 units SC x 1 * If diet ordered with lunch, will give Lantus 10 units SC x 1 with lunch * Lantus 0-10 units SC HS (see eMAR for more details) * Reassess basal needs in the AM * Bolus insulin * NovoLog per scale ACHS or Q6hrs while NPO * Goal Range: Low 110 mg/dL - High 140 mg/dL * Correction Factor: 25 mg/dL/unit * Nutritional / Prandial insulin per carb ratio of 1 unit per 8 grams CHO consumed
[2024-11-29 11:02] LABS: A calco-baum cmplx NotReported Not Detected (NotDetected); Bact fragilis Not Reported Not Detected (NotDetected); Blood Culture Id Panel See PCR Comment (NotDetected); C auris Not Reported Not Detected (NotDetected); Calbicans Not Reported Not Detected (NotDetected); Candida glabrata Not Reported Not Detected (NotDetected); Candida krusei Not Reported Not Detected (NotDetected); Cneoformans/gatti Not Reported Not Detected (NotDetected); Cparapsilosis Not Reported Not Detected (NotDetected); E cloacae compx Not Reported Not Detected (NotDetected); Efaecalis Not Reported Not Detected (NotDetected); Efaecium Not Reported Not Detected (NotDetected); Enterobacterales Not Reported Not Detected (NotDetected); Escherichia coli Not Reported Not Detected (NotDetected); H influenzae Not Reported Not Detected (NotDetected); K aerogenes Not Reported Not Detected (NotDetected); Koxytoca Not Reported Not Detected (NotDetected); Kpneumoniae grp Not Reported Not Detected (NotDetected); Lmonocyt Not Reported Not Detected (NotDetected); N meningitidis Not Reported Not Detected (NotDetected); P aeruginosa Not Reported Not Detected (NotDetected); Proteus spp Not Reported Not Detected (NotDetected); Salmonella spp Not Reported Not Detected (NotDetected); Staph lugdunensis Not Reported Not Detected (NotDetected); Staph spp. Not Reported DETECTED (NotDetected); Staphaureus Not Reported DETECTED (NotDetected); Staphepi Not Reported Not Detected (NotDetected); Stenmaltophilia Not Reported Not Detected (NotDetected); Strep agal(GrpB) Not Reported Not Detected (NotDetected); Strep pneum Not Reported Not Detected (NotDetected); Strep pyog (GrpA) Not Reported Not Detected (NotDetected); Strep spp Not Reported Not Detected (NotDetected); mecAC+MREJ Resistant Gene MRSA Not Detected (NotDetected)
[2024-11-29 11:25] LABS: Staphylococcus spp. DETECTED (NotDetected)
--- NOTE | 2024-11-29 13:11 | Podiatry Consultation ---
Date of Consultation November 29, 2024 Assessment & Plan (1) Acute osteomyelitis of toe of left foot: (2) Ulcer of left foot with necrosis of bone: Plan patient was examined and evaluated. His dressing was removed and the foot was redressed with a Betadine wet to dry dressing. There is obvious clinical and radiographic evidence of osteomyelitis and he has been nothing by mouth today so far. We will adding him as a amputation of this left second toe later today. The toe is likely able to be disarticulated metatarsophalangeal joint with clinically clean margins. After this, he can likely be discharged over the weekend on oral antibiotics with primary closure expected. Patient is amenable to this work on scheduling with the operating room today. Thank you for the consult, where I was happy to help whenever possible. History of Present Illness Reason for Consultation: Left second toe osteomyelitis Attending Physician: Justin Suggs MD History of Present Illness patient seen at bedside. States that over the last few weeks has developed increasing ulceration and drainage to the left second toe. He states this has been a long-standing hammertoe deformity but has never bothered him much. Recently, however, he fell on ice and jammed this toe into the ground. He states this was several weeks ago but since that time has opened up, become swollen, and had increasing drainage. Now, the whole foot was swollen and he was developing systemic signs of infection so presented first to express care and then the emergency department from there. He was admitted with these worsening symptoms of systemic infection. Allergies Allergy/AdvReac Type Severity Reaction Status Date / Time onion AdvReac Severe SEVERE GI Verified 11/28/24 11:39 UPSET--BLOATING, GAS DISCOMFORT Home Medications Medication Instructions Recorded Confirmed Type ascorbic acid (vitamin C) 1,000 mg 1 g PO DAILY 04/26/23 11/28/24 History tablet (Vitamin C) cholecalciferol (vitamin D3) 125 125 mcg PO DAILY 04/26/23 11/28/24 History mcg (5,000 unit) tablet (Vitamin D3) ondansetron 4 mg disintegrating 4 mg PO Q8H PRN nausea and 04/26/23 11/28/24 Rx tablet vomiting #30 tabs vitamin E 268 mg (400 unit) capsule 0 mg PO DAILY 04/26/23 11/28/24 History Patient History Medical History No pertinent family history Surgical History No pertinent past surgical history Social History Smoking Status: Never smoker Second Hand Exposure: No; Do You Dip or Chew Tobacco: No; Tobacco Cessation Education Requested by Patient: No Hx Alcohol Use: No Hx Substance Use: No Preferred Language: Kyrgyz Communication Ability: Effective Film Booker Required: No Beliefs That Will Affect Care: None Current Living Situation: Spouse Other Information That Helps Us Care for You: No Feels Safe at Home: Yes Safety Concerns: Feels Safe At This Time Assistive Devices: None Review of Systems Review of Systems: All systems reviewed & are unremarkable except as noted in HPI & below Constitutional: + fever, + chills and + weakness; no fat igue Eyes: no problem reported Ear, Nose, Mouth, Throat: no problem reported Respiratory: no problem reported Cardiovascular: + edema; no problem reported Gastrointestinal: no nausea, no vomiting and no problem reported Musculoskeletal: no problem reported Integumentary: + skin ulcer, + wounds and + erythema Neurologic: + loss of sensation, + numbness and + pa resthesia; no generalized weakness Psychiatric: no problem reported Physical Exam Physical Exam: lower extremity focused exam: DP/PT pulses 1/4 bilaterally. CFT is brisk to the digits, including the left second toe which is otherwise infected. There is profound erythema, edema, and purulent drainage centered around the ulceration probing directly to the proximal interphalangeal joint. The toe is contracted at the level of the metatarsal phalangeal joint and proximal interphalangeal joint in a classic deformity. No ascending lymphangitis is noted. Foot overall is edematous and warm. Advanced trophic changes are noted otherwise with thinning of the skin, nail dystrophy, and hair growth diminishing. the bone is immediately probable on clinical exam and radiographs confirm evidence of destruction of the proximal phalanx head. Constitutional: WD/WN, vitals as above + ill appearing and average body habitus Eyes: PERRL, conjunctivae normal, anicteric sclerae ENMT: external ear and nose normal, oropharynx normal Neck: trachea midline, no thyromegaly normal visual inspection Respiratory: normal respiratory effort; no respiratory distress Cardiovascular: Rate/Rhythm: regular rate and regular rhythm Vessels: posterior tibial pulses present and dorsalis pedis pulses present Chest (Breasts): Chest: normal inspection of chest Gastrointestinal (Abdomen): Inspection/Auscultation: abdomen normal to inspection Percussion/Palpation: + abdomen tender and abdomen soft Musculoskeletal: no cyanosis or clubbing, extremities motor strength 5/5 Head/Neck/Chest: normocephalic and head atraumatic Extremities: extremities normal to inspection Neurologic: awake; + abnormal touch/pain/proprioception, + abnormal sensation to monofilament and no focal motor deficits Psychiatric: A+Ox3, euthymic affect Results & Data Vital Signs (Past 12 Hours) Vital Signs Temp Pulse Pulse Pulse Resp BP BP 11/29/24 11:30 36.9 C 72 12 145/70 H 11/29/24 07:40 37.2 C 70 14 178/76 H 11/29/24 07:36 37.0 C 73 18 160/79 H 11/29/24 05:45 82 11/29/24 03:23 37.7 C H 78 18 163/79 H Pulse Ox O2 Del Method 11/29/24 11:30 97 Room Air 11/29/24 07:40 98 Room Air 11/29/24 07:36 97 Room Air 11/29/24 05:45 11/29/24 03:23 98 Room Air
--- NOTE | 2024-11-29 16:52 | Anesthesiology Consultation ---
Date of Service November 29, 2024 Assessment & Plan Chart Review Chart Review: Acceptable Risk for Surgery and Patient NOT seen in Pre Admission Testing Consults Requested none ASA ASA3 Proposed Anesthesia Anesthesia Type: MAC Risk / Benefits Reviewed With: PT / POA / Parent / Guardian, Accepts Plan and Informed Consent Obtained History Surgery Operation Date: 11/29/24 11:35 Proposed Procedures p Left Second Toe Amputation - Olivia Jack DPM Height/Weight Height: 5 ft 11 in Weight: 71.7 kg Allergies Allergy/AdvReac Type Severity Reaction Status Date / Time onion AdvReac Severe SEVERE GI Verified 11/28/24 11:39 UPSET--BLOATING, GAS DISCOMFORT Medications Home Medications Medication Instructions Recorded Confirmed Last Taken ascorbic acid (vitamin C) 1,000 mg 1 g PO DAILY 04/26/23 11/28/24 04/26/23 tablet (Vitamin C) cholecalciferol (vitamin D3) 125 125 mcg PO DAILY 04/26/23 11/28/24 04/26/23 mcg (5,000 unit) tablet (Vitamin D3) ondansetron 4 mg disintegrating 4 mg PO Q8H PRN nausea and 04/26/23 11/28/24 Unknown tablet vomiting #30 tabs vitamin E 268 mg (400 unit) capsule 0 mg PO DAILY 04/26/23 11/28/24 04/26/23 Active Medications Generic Name Dose Route Start Last Admin Trade Name Freq PRN Reason Stop Dose Admin Diclofenac Sodium 2 gm 11/28/24 20:00 11/29/24 14:27 Diclofenac Sod 1% Gel 100 Gm Tube EXT 12/28/24 19:59 Not Given Q6H [facility] Protocol Heparin Sodium (Porcine) 5,000 units 11/28/24 21:00 11/29/24 08:19 Heparin Sod 5,000 Unit/0.5 Ml Vial SQ 12/28/24 20:59 5,000 units Q12 VIKKI Administration Hydralazine HCl 10 mg 11/28/24 16:51 11/28/24 22:34 Hydralazine Hcl 20 Mg/Ml Vial IV 12/28/24 16:59 10 mg Q6H PRN Administration HTN Cefepime HCl 2,000 mg in 20 mls @ 5 mls/min 11/28/24 22:00 11/29/24 14:45 Maxipime 2000mg IV 01/09/25 21:59 5 mls/min Q8H VIKKI Administration Protocol Vancomycin HCl 1,250 mg/ 275 mls @ 200 mls/hr 11/29/24 05:00 11/29/24 05:37 Sodium Chloride IV 01/10/25 04:59 Infused Q24H VIKKI Infusion Insulin Aspart 0 units 11/29/24 07:45 11/29/24 12:27 Insulin Aspart Per Unit Charge SC 12/29/24 07:44 Not Given ACHS VIKKI Lactobacillus Acidophilus 1,250 mg 11/29/24 09:00 11/29/24 08:16 Advanced Probiotic 625 Mg Capsule PO 12/29/24 08:59 1,250 mg DAILY VIKKI Administration Losartan Potassium 25 mg 11/29/24 09:00 11/29/24 08:56 Losartan Potassium 25 Mg Tab PO 12/29/24 08:59 25 mg QAM VIKKI Administration NPO Date Last Intake of Fluids: 11/28/24 Time Last Intake of Fluids: 21:00 Date Last Intake of Solids: 11/28/24 Time Last Intake of Solids: 21:00 Past Medical History Medical History No pertinent family history HTN HLD ASCVD Aorta NIDDM ANEMIA severe LVH pseudohyponatremia Exercise / Class Metabolic Activity III < 4 Walking/Shop/Light housework Past Surgical History Surgical History No pertinent past surgical history Past Anesthesia History No Hx of Anesthesia Complications and No Family Hx of Anesthesia Complications History of PONV No Hx of PONV and No Hx of Motion Sickness Social History Smoking Status: Never smoker Do You Dip or Chew Tobacco: No Hx Alcohol Use: No Hx Substance Use: No Physical Exam Vital Signs Last Vital Signs Temp 37.1 C 11/29/24 16:10 Pulse 71 11/29/24 16:10 Resp 22 11/29/24 16:10 BP 180/89 H 11/29/24 16:10 Pulse Ox 100 11/29/24 16:10 O2 Del Method Room Air 11/29/24 16:10 Constitutional no acute distress and not cachectic ENMT Mouth: no dentition abnormality Thyromental Distance: > or= 3.5 Finger Breadths Mallampati Class: II Neck normal visual inspection, trachea midline and + facial hair; neck extension not limited Respiratory normal respiratory effort Auscultation: lungs clear to auscultation bilaterally Cardiovascular Rate/Rhythm: regular rate and regular rhythm Heart Sounds: no murmur Vessels: no carotid bruit Musculoskeletal Spine: normal cervical ROM and no pain with cervical ROM Extremities: extremities normal to inspection; full ROM of extremities Neurologic moves all extremities Motor/Sensory: + sensory deficit (diabetic PN) Psychiatric Orientation: alert and oriented x 3 Testing Laboratory Results 11/29/24 06:21 11/29/24 06:21 Hemoglobin A1c 13.9 % (4.5-5.6) H 11/28/24 13:44 11/28/24 15:38 Aerobic Blood Culture - Preliminary Blood Gram positive cocci clusters Anaerobic Blood Culture - Preliminary Gram positive cocci clusters 11/28/24 15:05 Gram Stain - Final Toe Aerobic and Anaerobic Culture - Preliminary Staphylococcus aureus 11/29/24 11/29/24 11/29/24 16:08 11:45 07:56 POC Glucose 95 119 H 115 H 11/29/24 11/29/24 06:59 05:05 POC Glucose 114 H 126 H Electrocardiogram Date: 04/26/23 Findings: + NSR @ (@ 79) Chest X-Ray Date: 11/28/24 Findings: + NAD Echocardiogram Date: 11/29/24 EF: 65% LV Function: normal RWMA: + none Other Findings: + LVH (severe conc.) and + diastolic dysfunction (Grade 1) Valvular Disease: + no significant valvular disease
[2024-11-29] MEDS ORDERED: FLUMAZENIL 0.1 MG/1 ML 10 ML VIAL IV PRN (16:54)
[2024-11-29] MEDS ORDERED: ONDANSETRON INJ 2 MG/ML 2 ML VIAL IV PRN (16:54)
[2024-11-29] MEDS ORDERED: ATROPINE SULFATE 0.1 MG/ML 10ML SYR IV PRN (16:54)
[2024-11-29] MEDS ORDERED: LABETALOL HCL IV 5 MG/ML 20ML IV PRN (16:54)
[2024-11-29] MEDS ORDERED: PROMETHAZINE HCL 6.25 MG in SODIUM CHLORIDE 0.9% 50 ML IV PRN (16:54)
[2024-11-29] MEDS ORDERED: NALOXONE HCL 0.4 MG/1 ML VIAL/CARP IV PRN (16:54)
[2024-11-29] MEDS ORDERED: ePHEDrine sulfate 50 MG/ML AMP IV PRN (16:54)
[2024-11-29] MEDS ORDERED: fentaNYL citrate PF 100 MCG/2 ML VIAL IV PRN (16:54)
--- NOTE | 2024-11-29 17:28 | History & Physical Bridge Note ---
Date of Service November 29, 2024 History & Physical Bridge Note I have examined the patient, reviewed the History & Physical and in the interval since the performance of the History & Physical I have noted the following changes of clinical significance: no changes noted
[2024-11-29] MEDS ORDERED: LIDOCAINE 2% 2 ML VIAL/AMP(20MG/ML) INFIL ONE (17:46)
[2024-11-29] MEDS ORDERED: ONDANSETRON INJ 2 MG/ML 2 ML VIAL ONE (17:46)
[2024-11-29] MEDS ORDERED: fentaNYL citrate PF 100 MCG/2 ML VIAL ONE (17:46)
[2024-11-29] MEDS ORDERED: PROPOFOL IV EMULSION 10 MG/ML 20 ML VIAL IV ONE ×3 (17:46→17:48)
[2024-11-29] MEDS: BUPIVACAINE 0.5 % 5 MG/1 ML MPF 30ML VIAL ONE (18:15)
--- NOTE | 2024-11-29 18:44 | Post Operative Brief Note ---
Immediate Post Op Note Date of Surgery November 29, 2024 Pre & Post Diagnosis Operation Date: 11/29/24 11:35 Pre-Op Diagnosis: Left second toe osteomyelitis Post-Op Diagnosis: Left second toe osteomyelitis I identified the patient and participated in the time-out.: Yes Procedure Operation Date: 11/29/24 11:35 Actual Procedures p Left Second Toe Amputation(Left) - Olivia Jack DPM Surgeon Olivia Jack DPM Ink Grinder none Estimated Blood Loss 5 Findings Consistent with Post-Op Diagnosis Specimens left 2nd toe pathology swab culture left 2nd toe wound left 2nd toe wound tissue culture Anesthesia Type MAC Complications none Disposition Accompanied Patient To Recovery: Yes
--- NOTE | 2024-11-29 18:51 | Operative Report ---
Post Operative Report Pre & Post Diagnosis Operation Date: 11/29/24 11:35 Pre-Op Diagnosis: Left second toe osteomyelitis Post-Op Diagnosis: Left second toe osteomyelitis I identified the patient and participated in the time-out.: Yes Procedure Operation Date: 11/29/24 11:35 Actual Procedures p Left Second Toe Amputation(Left) - Olivia Jack DPM Surgeon Olivia Jack DPM Funeral Service Manager none Estimated Blood Loss 5 Findings Consistent with Post-Op Diagnosis Specimens 1. Left second toe send pathology 2. Left second toe wound tissue for culture. 3 left second toe wound swab culture Anesthesia Type MAC Complications none Disposition Accompanied Patient To Recovery: Yes Indications This patient is a 74-year-old diabetic male with a left second toe ulceration with underlying osteomyelitis presented to [facility] emergency department earlier today with worsening left second toe ulcer and systemic signs of infection. The patient was admitted and seen by Dr. Edin Jack earlier today. The patient states that he has had a hammertoe of the left second toe and started off as a small ulcer that worsened over time. States that over the last few weeks has developed increasing ulceration and drainage to the left second toe. Recently, however, he fell on ice and jammed this toe into the ground. States since that injury the bone was exposed through the wound and the toe has become swollen, and had increasing drainage. It was recommended a left second toe amputation. Risk including but not limited to continued infection, phantom pain, chronic pain, transfer lesions, wound dehiscence, hallux valgus deformity, blood clots, loss of limb, loss of life, failure procedure need for additional procedures. The patient states that he understands the's risk, benefits, alternative surgery and wants to proceed. Surgical consent was signed in the preoperative setting. Description of Procedure The patient was brought into the operating and remained in the patient bed in a supine position. A timeout was performed in in order to correct identify the patient planned procedure and correct toe. A well-padded pneumatic ankle tourniquet was applied to the left ankle. Following monitored anesthesia care 10 cc of half percent Marcaine plain was administered for a left second digital block under aseptic technique. The left lower extremity was scrubbed prepped and draped in the usual aseptic manner. The left lower extremity was elevated for 3 minutes and the tourniquet was inflated to 250 mmHg. No Esmarch bandage was utilized. Attention was then directed to the left second toe at the level of the metatarsophalangeal joint where 2 semielliptical incisions were made with a 15 blade. This incision was deepened utilizing sharp to the level of the second metatarsal phalangeal joint. This left second toe was disarticulated at the level of the metatarsophalangeal joint and passed from the operative field to the back table. Copious amounts of saline was utilized to irrigate the surgical wound. No proximal purulence could be expressed from the wound. The head of the second metatarsal appeared healthy and cartilage was intact. Clinical clear margins were noted. Deep closure was performed utilizing 4-0 Monocryl. Skin closure was performed utilizing 4-0 nylon in a interrupted and simple stitch fashion. The tourniquet was deflated and immediate hyperemia was noted to the left foot. The incision was dressed with Betadine soaked Adaptic 4 x 4 gauze Kerlix and Trace bandage. The patient tolerated the procedure and anesthesia well with all vital signs stable vascular status intact left foot. Attention was then directed to the back table where a swab culture was obtained of the left second toe wound. A tissue specimen from the left second toe wound was excised and sent for cultures. The left second toe was sent to pathology. The patient was transferred to recovery for brief postoperative monitoring and will be transferred back to the floor for continued medical management. Recommendations for the patient be discharged on 10-14 days of oral antibiotics and to follow-up with our office in 1 week. The patient should keep the bandage dry clean and intact until the first postop visit. The patient may ambulate as tolerated in a postop shoe. The patient is cleared for discharge per podiatry and to be discharged when stable per medicine. I attest to the content of the Intraoperative Record and any orders documented therein. Any exceptions are noted below.
--- NOTE | 2024-11-29 19:48 | Anesthesiology Progress Note ---
Date of Service November 29, 2024 Anesthesia Post Procedure Vital Signs Vital Signs: Temp Pulse Pulse Pulse Resp BP BP 11/29/24 19:25 37.2 C 70 18 178/89 H 11/29/24 19:15 70 19 183/91 H 11/29/24 19:11 71 17 189/91 H 11/29/24 19:05 71 19 181/94 H 11/29/24 18:55 72 22 178/91 H 11/29/24 18:47 37.0 C 77 20 178/110 H 11/29/24 16:10 37.1 C 71 22 180/89 H 11/29/24 15:54 36.7 C 100 H 20 176/84 H 11/29/24 13:00 72 11/29/24 11:30 36.9 C 72 12 145/70 H 11/29/24 07:40 37.2 C 70 14 178/76 H 11/29/24 07:36 37.0 C 73 18 160/79 H 11/29/24 05:45 82 11/29/24 03:23 37.7 C H 78 18 163/79 H 11/28/24 23:01 82 11/28/24 22:07 37.6 C H 86 18 198/90 H 11/28/24 20:00 84 18 180/84 H Pulse Ox O2 Del Method 11/29/24 19:25 96 Room Air 11/29/24 19:15 95 Room Air 11/29/24 19:11 96 Room Air 11/29/24 19:05 95 Room Air 11/29/24 18:55 96 Room Air 11/29/24 18:47 97 Room Air 11/29/24 16:10 100 Room Air 11/29/24 15:54 96 Room Air 11/29/24 13:00 11/29/24 11:30 97 Room Air 11/29/24 07:40 98 Room Air 11/29/24 07:36 97 Room Air 11/29/24 05:45 11/29/24 03:23 98 Room Air 11/28/24 23:01 11/28/24 22:07 97 Room Air 11/28/24 20:00 99 Room Air Pain Intensity Left Shoulder: Pain Intensity: 3 Transfer of Care Handoff Completed per policy Notes Mental Status: alert / awake / arousable and participated in evaluation Patient Amnestic to Procedure: Yes Nausea / Vomiting: adequately controlled Pain: adequately controlled Airway Patency, RR, SpO2: stable & adequate BP & HR: stable & adequate Hydration State: stable & adequate Anesthetic Complications: no major complications apparent
[2024-11-29] MEDS: LABETALOL HCL IV 5 MG/ML 20ML IV STA (20:40)
[2024-11-30] MEDS: hydrALAZINE HCL 20 MG/ML VIAL IV STA (01:39)
[2024-11-30] MEDS: LABETALOL HCL IV 5 MG/ML 20ML IV STA (02:28)
[2024-11-30] MEDS: ACETAMINOPHEN 325 MG TAB PO PRN (04:20)
--- NOTE | 2024-11-30 07:27 | Hospitalist Progress Note ---
Date of Service November 30, 2024 Assessment & Plan (1) Diabetes: Plan Left toe osteomyelitis Bacteremia (secondary to above): WBC elevated Started on cefepime and vancomycin on admission, will cont. for now Podiatry consulted and discussed with - s/p surgery/ 2nd toe amputation on 11/29/2024 Blood cultx - Staph aureus wound culture - posit. for Staph aureus repeat blood cultx and will consult w/ ID Uncontrolled diabetes/hyperglycemia: Current A1c 13.9% patient has self discontinued insulin in the past Patient was started on insulin drip initially in ED, now stopped Glycemic pharmacy consulted clinical trial educator consulted - recommend to DC on Metformin BID and once daily Lantus His testing supplies are over the counter so he won't need a script for that. He will need a script for insulin pen needles (32 gauge x 5/32" 4 mm) with his Lantus pen. can get him a savings card for $35.00 per month for the Lantus and bring it to him on Monday. DE will be back Monday for more teaching. Pseudohyponatremia: In the setting of hyperglycemia Na 136 on 11/29, cont. to monitor Na 132 on 11/30 9however again pt's blood glc elevated) - cont. to closely monitor Hypertensive urgency: Blood pressure elevated, the highest noted in the ED was 197/79 mmHg. losartan added on admission, as needed blood pressure medication. Blood pressure medication needs to be uptitrated. echo ordered given lack of prior PCP follow-ups. Echo - LV is normal in size. severe concentric LVH. LV wall motion is normal. LV EF 65-70%. Grade 1 diastolic dysfunction. Aortic valve sclerosis mild, without significant aortic valvular stenosis. The aortic root is normal in size DVT prophylaxis: Heparin subcu Full code Admission and Anticipated Discharge Date Admission Date: November 28, 2024 Subjective Pt seen in follow up of 2nd toe osteo, uncontrolled DM (hyperglycemia) Pt lying in bed in NAD S/p surgery/ amputation yesterday Today pt is feeling well, in good spirits, present at the bedside no chest pain, shortness of breath, no abd pain, n/v Blood cultx posit. Review of Systems Review of Systems: All systems reviewed & are unremarkable except as noted in Subjective Physical Exam Physical Exam: GENERAL: Alert and oriented x3. NAD, on RA. HEENT: NC/AT. Pupils equal, round and reactive to light. Oral mucosa moist. NECK: No JVD, no neck masses. HEART: Regular rate and rhythm. No murmur RESPIRATORY: Normal AP diameter. No accessory muscle use. No wheezing, no crackles. ABDOMEN: Soft, bowel sounds present, nontender, no distention. NEURO: awake, alert, oriented, answers appropriately. No facial droop. Speech is clear. Moves extremities. EXTREMITIES: RLE - No edema, no erythema seen. LLE: surg. dressings applied, s/p 2nd toe amputation, Lt shoulder w/ tender rom, LUE weak. Results & Data Results & Data Vital Signs (Past 12 Hours) Vital Signs Temp Pulse Pulse Resp BP BP Pulse Ox 11/30/24 06:45 78 11/30/24 04:14 37.8 C H 83 18 185/76 H 96 11/30/24 03:41 93 H 185/76 H 11/30/24 02:28 86 191/87 H 11/30/24 01:00 37.7 C H 78 16 193/90 H 97 11/30/24 00:19 80 11/30/24 00:00 37.1 C 79 18 182/85 H 97 11/29/24 23:00 37.4 C 83 18 165/87 H 97 11/29/24 22:01 37.4 C 83 18 165/87 H 97 11/29/24 21:51 72 189/88 H 11/29/24 20:50 36.8 C 72 18 189/88 H 97 11/29/24 20:40 77 207/97 H 11/29/24 20:10 36.4 C L 77 18 207/97 H 97 11/29/24 19:45 37.1 C 72 19 189/90 H 96 O2 Del Method 11/30/24 06:45 11/30/24 04:14 Room Air 11/30/24 03:41 11/30/24 02:28 11/30/24 01:00 Room Air 11/30/24 00:19 11/30/24 00:00 Room Air 11/29/24 23:00 Room Air 11/29/24 22:01 Room Air 11/29/24 21:51 11/29/24 20:50 Room Air 11/29/24 20:40 11/29/24 20:10 Room Air 11/29/24 19:45 Room Air Laboratory Results 11/29/24 11/29/24 11/29/24 Range/Units 20:14 18:53 16:08 Sodium (136-145) mmol/L Potassium (3.5-5.1) mmol/L Chloride (98-107) mmol/L Carbon Dioxide (21-32) mmol/L Anion Gap (3-11) BUN (6-23) mg/dl Creatinine (0.6-1.4) mg/dl Est Cr Clr Drug Dosing ml/min eGFR BUN/Creatinine Ratio (10-20) Glucose (70-99(Fasting)) mg/dl POC Glucose 108 H 106 H 95 (70-99) mg/dl Calcium (8.6-10.3) mg/dl Phosphorus (2.5-4.9) mg/dl Magnesium (1.7-2.4) mg/dl Staphylococcus sp PCR (NotDetected) Staph aureus (PCR) (NotDetected) mecA/C & MREJ Resist Gene (NotDetected) Bld Cult ID Panel PCR (NotDetected) 11/29/24 11/29/24 11/29/24 Range/Units 11:45 07:56 06:21 Sodium 136 (136-145) mmol/L Potassium 3.6 (3.5-5.1) mmol/L Chloride 104 (98-107) mmol/L Carbon Dioxide 27 (21-32) mmol/L Anion Gap 5 (3-11) BUN 20 (6-23) mg/dl Creatinine 1.03 (0.6-1.4) mg/dl Est Cr Clr Drug Dosing 61.9 ml/min eGFR 75.28 BUN/Creatinine Ratio 19.4 (10-20) Glucose 110 H (70-99(Fasting)) mg/dl POC Glucose 119 H 115 H (70-99) mg/dl Calcium 7.8 L (8.6-10.3) mg/dl Phosphorus 3.2 (2.5-4.9) mg/dl Magnesium 1.8 (1.7-2.4) mg/dl Staphylococcus sp PCR (NotDetected) Staph aureus (PCR) (NotDetected) mecA/C & MREJ Resist Gene (NotDetected) Bld Cult ID Panel PCR (NotDetected) 11/28/24 Range/Units 15:38 Sodium (136-145) mmol/L Potassium (3.5-5.1) mmol/L Chloride (98-107) mmol/L Carbon Dioxide (21-32) mmol/L Anion Gap (3-11) BUN (6-23) mg/dl Creatinine (0.6-1.4) mg/dl Est Cr Clr Drug Dosing ml/min eGFR BUN/Creatinine Ratio (10-20) Glucose (70-99(Fasting)) mg/dl POC Glucose (70-99) mg/dl Calcium (8.6-10.3) mg/dl Phosphorus (2.5-4.9) mg/dl Magnesium (1.7-2.4) mg/dl Staphylococcus sp PCR DETECTED A (NotDetected) Staph aureus (PCR) DETECTED A (NotDetected) mecA/C & MREJ Resist Gene MRSA Not Detected (NotDetected) Bld Cult ID Panel PCR See PCR Comment (NotDetected) Medications Administered Current Inpatient Medications Acetaminophen (Acetaminophen 325 Mg Tab) 650 mg PO Q4H PRN PRN Reason: Pain or Fever Stop: 12/28/24 16:32 Last Admin: 11/30/24 04:20 Dose: 650 mg Al Hydrox/Mg Hydrox/Simethicone (Aluminum/Magnesium Susp 30 Ml Udc) 15 ml PO Q4H PRN PRN Reason: Dyspepsia Stop: 12/28/24 16:32 Dextrose (Dextrose 50% 50 Ml Syringe) 25 - 50 ml IV UD PRN; Protocol PRN Reason: Hypoglycemia Protocol Stop: 12/28/24 15:29 Diclofenac Sodium (Diclofenac Sod 1% Gel 100 Gm Tube) 2 gm EXT Q6H [facility]; Protocol Stop: 12/28/24 19:59 Last Admin: 11/30/24 08:28 Dose: Not Given Glucagon (Glucagon For Inj 1 Mg Vial) 1 mg SQ UD PRN; Protocol PRN Reason: Hypoglycemia Protocol Stop: 12/28/24 15:29 Glucose (Glucose 40% Gel 15 Gm Tube) 15 - 30 gm PO UD PRN; Protocol PRN Reason: Hypoglycemia Protocol Stop: 12/28/24 15:29 Glucose (Glucose 10 Tab/Tube) 4 - 8 tab PO UD PRN; Protocol PRN Reason: Hypoglycemia Protocol Stop: 12/28/24 15:29 Heparin Sodium (Porcine) (Heparin Sod 5,000 Unit/0.5 Ml Vial) 5,000 units SQ Q12 [facility] Stop: 12/28/24 20:59 Last Admin: 11/30/24 08:28 Dose: 5,000 units Hydralazine HCl (Hydralazine Hcl 20 Mg/Ml Vial) 10 mg IV Q6H PRN PRN Reason: HTN Stop: 12/28/24 16:59 Last Admin: 11/28/24 22:34 Dose: 10 mg Cefepime HCl (Maxipime 2000mg) 2,000 mg in 20 mls @ 5 mls/min IV Q8H [facility]; Protocol Stop: 01/09/25 21:59 Last Admin: 11/30/24 05:44 Dose: 5 mls/min Vancomycin HCl 1,250 mg/ (Sodium Chloride) 275 mls @ 200 mls/hr IV Q24H [facility] Stop: 01/10/25 04:59 Last Infusion: 11/30/24 05:44 Dose: Infused Insulin Aspart (Insulin Aspart Per Unit Charge) 0 units SC ACHS [facility] Stop: 12/29/24 07:44 Last Admin: 11/30/24 09:09 Dose: 11 units Insulin Glargine (Lantus Per Unit Charge) 10 units SC DAILY [facility] Stop: 12/30/24 08:59 Last Admin: 11/30/24 08:28 Dose: 10 units Lactobacillus Acidophilus (Advanced Probiotic 625 Mg Capsule) 1,250 mg PO DAILY [facility] Stop: 12/29/24 08:59 Last Admin: 11/30/24 08:28 Dose: 1,250 mg Losartan Potassium (Losartan Potassium 25 Mg Tab) 25 mg PO QAM [facility] Stop: 12/29/24 08:59 Last Admin: 11/30/24 08:28 Dose: 25 mg Magnesium Hydroxide (Magnesium Hydroxide Susp 30 Ml Udc) 30 ml PO Q12H PRN PRN Reason: Constipation Stop: 12/28/24 16:32 Miscellaneous (Carbohydrates For Hypoglycemia ) 15 - 30 gm PO UD PRN PRN Reason: Hypoglycemia Treatment Stop: 12/28/24 15:29 Miscellaneous Information (Vancomycin Consult Active) 1 each N/A UD PRN PRN Reason: Consult Stop: 12/28/24 15:08 Miscellaneous Information (Pharmacy Glycemic Mgmt Consult) 1 each N/A UD PRN; Protocol PRN Reason: Consult Stop: 12/28/24 16:28 Ondansetron HCl (Ondansetron Inj 2 Mg/Ml 2 Ml Vial) 4 mg IV Q6H PRN PRN Reason: Nausea Stop: 12/28/24 16:32
[2024-11-30 08:09] LABS: Hematocrit (blood only) 32.9 % (42.0-52.0); Hemoglobin 11.6 g/dl (14.0-18.0); Mean Corpuscular Hemoglobin 30.4 pg (25.0-34.0); Mean Corpuscular Hgb Conc 35.3 g/dL (32.0-36.0); Mean Corpuscular Volume 86.4 fL (80.0-100.0); Mean Platelet Volume 9.6 fL (9.4-12.4); Platelet Count 363 K/uL (130-400); RDW Coefficient of Variation 12.2 % (11.5-14.5); RDW Standard Deviation 38.7 fL (36.4-46.3); Red Blood Count 3.81 M/uL (4.70-6.10); White Blood Count 10.92 K/ul (4.8-10.8)
[2024-11-30 08:24] LABS: Calcium 7.9 mg/dl (8.6-10.3); Creatinine Clr Calc Pharmacy 62.7 ml/min; Magnesium 1.7 mg/dl (1.7-2.4); Phosphorus 3.5 mg/dl (2.5-4.9); Potassium 4.2 mmol/L (3.5-5.1)
[2024-11-30] MEDS: LANTUS PER UNIT CHARGE SC SCH ×2 (08:28→20:04)
[2024-11-30] MEDS: 4.5GM X1 IV ONE (13:59)
--- NOTE | 2024-11-30 14:35 | Pharmacy Report ---
Pharmacy Glycemic Short Note 2 - Date of Service November 30, 2024 - Glycemic Short BSG Results (Last 24 hours): 11/29/24 11/29/24 11/29/24 16:08 18:53 20:14 Glucose POC Glucose 95 106 H 108 H 11/30/24 11/30/24 11/30/24 07:27 07:49 11:46 Glucose 246 H POC Glucose 241 H 223 H OUTPATIENT ANTIDIABETIC REGIMEN: * None HbA1c: * 13.9% (11/28/24) ASSESSMENT: 11/30 * Patient received only 5 units of insulin + insulin drip yesterday, NPO. Diet started this AM. * Fasting BSG 241 mg/dL - will give 10 units of Lantus once daily and tighten novolog * Anticipate basal insulin will likely need titrated, will provide a scale for HS 0-5 units in case BSGs elevated. Will aim for once daily basal insulin starting tomorrow AM 11/29 * 74 yo M admitted on 11/28/24 secondary to hyperglycemia and diabetic foot infection. Pharmacy has been consulted to assist with inpatient glycemic management. Patient is a Type 2 diabetic as an outpatient. Please refer to outpatient regimen and most recent HbA1c above. Of note, patient has self discontinued insulin in the past. * Significant hyperglycemia with presenting BSG of 516 mg/dL upon admission. Doesn't take outpatient antidiabetic meds so A1c is significantly elevated. Required an insulin drip last evening. BSGs improved quickly overnight. * Discontinued insulin drip this AM. Will transition to SC basal/bolus. Patient is NPO right now for possible surgical intervention. Therefore will start Novolog based on weight/stress of 2 and give a low dose of basal. If diet ordered with lunch, will give an additional basal dose as trying to target 15- 20 units basal/day. PLAN FOR INPATIENT GLYCEMIC CONTROL: * Basal insulin * Lantus 10 units once daily * Lantus 0-5 units HS * Bolus insulin * NovoLog per scale ACHS or Q6hrs while NPO * Goal Range: Low 110 mg/dL - High 140 mg/dL * Correction Factor: 20 mg/dL/unit * Nutritional / Prandial insulin per carb ratio of 1 unit per 7 grams CHO consumed
[2024-11-30] MEDS: 4.5GM EXT INFUSION IV SCH (20:17)
[2024-12-01 07:21] LABS: Hematocrit (blood only) 35.1 % (42.0-52.0); Hemoglobin 12.3 g/dl (14.0-18.0); Mean Corpuscular Hemoglobin 30.8 pg (25.0-34.0); Mean Corpuscular Volume 87.8 fL (80.0-100.0); Mean Platelet Volume 9.3 fL (9.4-12.4); Platelet Count 400 K/uL (130-400); RDW Coefficient of Variation 12.1 % (11.5-14.5); RDW Standard Deviation 39.4 fL (36.4-46.3); White Blood Count 10.57 K/ul (4.8-10.8)
[2024-12-01 07:32] LABS: BUN Creatinine Ratio 16.7 (10-20); Calcium 8.3 mg/dl (8.6-10.3); Creatinine Clr Calc Pharmacy 54.7 ml/min; Magnesium 1.9 mg/dl (1.7-2.4); Phosphorus 3.7 mg/dl (2.5-4.9); Potassium 4.2 mmol/L (3.5-5.1)
--- NOTE | 2024-12-01 07:51 | Hospitalist Progress Note ---
Date of Service December 01, 2024 Assessment & Plan (1) Diabetes: Plan Left toe osteomyelitis Bacteremia (secondary to above): WBC elevated Started on cefepime and vancomycin on admission, will cont. for now Podiatry consulted and discussed with - s/p surgery/ 2nd toe amputation on 11/29/2024 Blood cultx - Staph aureus (MSSA) + Prevotella wound culture - posit. for Staph aureus (MSSA) repeat blood cultx - negat. in 24 hrs Abx switched to zosyn ID consulted Uncontrolled diabetes/hyperglycemia: Current A1c 13.9% patient has self discontinued insulin in the past Patient was started on insulin drip initially in ED, now stopped Glycemic pharmacy consulted certified lactation educator consulted - recommend to DC on Metformin BID and once daily Lantus His testing supplies are over the counter so he won't need a script for that. He will need a script for insulin pen needles (32 gauge x 5/32" 4 mm) with his Lantus pen. can get him a savings card for $35.00 per month for the Lantus and bring it to him on Monday. DE will be back Monday for more teaching. Pseudohyponatremia: In the setting of hyperglycemia Na 136 on 11/29, cont. to monitor Na 134 on 12/01 Hypertensive urgency: Blood pressure elevated, the highest noted in the ED was 197/79 mmHg. losartan added on admission, as needed blood pressure medication. Blood pressure medication needs to be uptitrated. echo ordered given lack of prior PCP follow-ups. Echo - LV is normal in size. severe concentric LVH. LV wall motion is normal. LV EF 65-70%. Grade 1 diastolic dysfunction. Aortic valve sclerosis mild, without significant aortic valvular stenosis. The aortic root is normal in size DVT prophylaxis: Heparin subcu Full code Admission and Anticipated Discharge Date Admission Date: November 28, 2024 Subjective Pt seen in follow up of 2nd toe osteo, uncontrolled DM (hyperglycemia) Pt lying in bed in NAD S/p surgery/ amputation Today pt is feeling well, in good spirits no chest pain, shortness of breath, no abd pain, n/v Blood cultx posit. DM educator consulted ID consulted Review of Systems Review of Systems: All systems reviewed & are unremarkable except as noted in Subjective Physical Exam Physical Exam: GENERAL: Alert and oriented x3. NAD, on RA. HEENT: NC/AT. Pupils equal, round and reactive to light. Oral mucosa moist. NECK: No JVD, no neck masses. HEART: Regular rate and rhythm. No murmur RESPIRATORY: Normal AP diameter. No accessory muscle use. No wheezing, no crackles. ABDOMEN: Soft, bowel sounds present, nontender, no distention. NEURO: awake, alert, oriented, answers appropriately. No facial droop. Speech is clear. Moves extremities. EXTREMITIES: RLE - No edema, no erythema seen. LLE: surg. dressings applied, s /p 2nd toe amputation, Lt shoulder w/ tender rom, LUE weak. Results & Data Results & Data Vital Signs (Past 12 Hours) Vital Signs Temp Pulse Pulse Resp BP BP Pulse Ox 12/01/24 07:41 36.7 C 77 20 157/79 H 96 12/01/24 06:45 72 12/01/24 02:53 36.9 C 79 16 172/86 H 97 11/30/24 23:03 82 11/30/24 22:51 36.9 C 82 16 164/76 H 96 11/30/24 21:23 156/78 H 11/30/24 20:02 36.8 C 89 16 191/93 H 96 O2 Del Method 12/01/24 07:41 Room Air 12/01/24 06:45 12/01/24 02:53 Room Air 11/30/24 23:03 11/30/24 22:51 Room Air 11/30/24 21:23 11/30/24 20:02 Room Air Laboratory Results 12/01/24 12/01/24 11/30/24 Range/Units 07:47 06:57 19:59 WBC 10.57 (4.8-10.8) K/ul RBC 4.00 L (4.70-6.10) M/uL Hgb 12.3 L (14.0-18.0) g/dl Hct 35.1 L (42.0-52.0) % MCV 87.8 (80.0-100.0) fL MCH 30.8 (25.0-34.0) pg MCHC 35.0 (32.0-36.0) g/dL RDW Std Deviation 39.4 (36.4-46.3) fL RDW Coeff of Mechelle 12.1 (11.5-14.5) % Plt Count 400 (130-400) K/uL MPV 9.3 L (9.4-12.4) fL Sodium 134 L (136-145) mmol/L Potassium 4.2 (3.5-5.1) mmol/L Chloride 103 (98-107) mmol/L Carbon Dioxide 25 (21-32) mmol/L Anion Gap 6 (3-11) BUN 20 (6-23) mg/dl Creatinine 1.20 (0.6-1.4) mg/dl Est Cr Clr Drug Dosing 54.7 ml/min eGFR 62.67 BUN/Creatinine Ratio 16.7 (10-20) Glucose 129 H (70-99(Fasting)) mg/dl POC Glucose 137 H 105 H (70-99) mg/dl Calcium 8.3 L (8.6-10.3) mg/dl Phosphorus 3.7 (2.5-4.9) mg/dl Magnesium 1.9 (1.7-2.4) mg/dl 11/30/24 11/30/24 11/30/24 Range/Units 16:51 11:46 07:27 WBC 10.92 H (4.8-10.8) K/ul RBC 3.81 L (4.70-6.10) M/uL Hgb 11.6 L (14.0-18.0) g/dl Hct 32.9 L (42.0-52.0) % MCV 86.4 (80.0-100.0) fL MCH 30.4 (25.0-34.0) pg MCHC 35.3 (32.0-36.0) g/dL RDW Std Deviation 38.7 (36.4-46.3) fL RDW Coeff of Mechelle 12.2 (11.5-14.5) % Plt Count 363 (130-400) K/uL MPV 9.6 (9.4-12.4) fL Sodium 132 L (136-145) mmol/L Potassium 4.2 (3.5-5.1) mmol/L Chloride 103 (98-107) mmol/L Carbon Dioxide 23 (21-32) mmol/L Anion Gap 6 (3-11) BUN 21 (6-23) mg/dl Creatinine 1.05 (0.6-1.4) mg/dl Est Cr Clr Drug Dosing 62.7 ml/min eGFR 73.57 BUN/Creatinine Ratio 20.0 (10-20) Glucose 246 H (70-99(Fasting)) mg/dl POC Glucose 124 H 223 H (70-99) mg/dl Calcium 7.9 L (8.6-10.3) mg/dl Phosphorus 3.5 (2.5-4.9) mg/dl Magnesium 1.7 (1.7-2.4) mg/dl Medications Administered Current Inpatient Medications Acetaminophen (Acetaminophen 325 Mg Tab) 650 mg PO Q4H PRN PRN Reason: Pain or Fever Stop: 12/28/24 16:32 Last Admin: 11/30/24 04:20 Dose: 650 mg Al Hydrox/Mg Hydrox/Simethicone (Aluminum/Magnesium Susp 30 Ml Udc) 15 ml PO Q4H PRN PRN Reason: Dyspepsia Stop: 12/28/24 16:32 Dextrose (Dextrose 50% 50 Ml Syringe) 25 - 50 ml IV UD PRN; Protocol PRN Reason: Hypoglycemia Protocol Stop: 12/28/24 15:29 Diclofenac Sodium (Diclofenac Sod 1% Gel 100 Gm Tube) 2 gm EXT Q6H [facility]; Protocol Stop: 12/28/24 19:59 Last Admin: 12/01/24 06:53 Dose: Not Given Glucagon (Glucagon For Inj 1 Mg Vial) 1 mg SQ UD PRN; Protocol PRN Reason: Hypoglycemia Protocol Stop: 12/28/24 15:29 Glucose (Glucose 40% Gel 15 Gm Tube) 15 - 30 gm PO UD PRN; Protocol PRN Reason: Hypoglycemia Protocol Stop: 12/28/24 15:29 Glucose (Glucose 10 Tab/Tube) 4 - 8 tab PO UD PRN; Protocol PRN Reason: Hypoglycemia Protocol Stop: 12/28/24 15:29 Heparin Sodium (Porcine) (Heparin Sod 5,000 Unit/0.5 Ml Vial) 5,000 units SQ Q12 [facility] Stop: 12/28/24 20:59 Last Admin: 11/30/24 20:17 Dose: 5,000 units Hydralazine HCl (Hydralazine Hcl 20 Mg/Ml Vial) 10 mg IV Q6H PRN PRN Reason: HTN Stop: 12/28/24 16:59 Last Admin: 11/30/24 20:17 Dose: 10 mg Piperacillin Sod/Tazobactam Sod (Zosyn) 4.5 gm in 100 mls @ 25 mls/hr IV Q8H [facility]; Protocol Stop: 01/11/25 19:59 Last Admin: 12/01/24 04:47 Dose: 25 mls/hr Insulin Aspart (Insulin Aspart Per Unit Charge) 0 units SC ACHS [facility] Stop: 12/29/24 07:44 Last Admin: 11/30/24 20:02 Dose: Not Given Insulin Glargine (Lantus Per Unit Charge) 10 units SC DAILY [facility] Stop: 12/30/24 08:59 Last Admin: 11/30/24 08:28 Dose: 10 units Lactobacillus Acidophilus (Advanced Probiotic 625 Mg Capsule) 1,250 mg PO DAILY [facility] Stop: 12/29/24 08:59 Last Admin: 11/30/24 08:28 Dose: 1,250 mg Losartan Potassium (Losartan Potassium 50 Mg Tab) 50 mg PO QAM [facility] Stop: 12/31/24 08:59 Magnesium Hydroxide (Magnesium Hydroxide Susp 30 Ml Udc) 30 ml PO Q12H PRN PRN Reason: Constipation Stop: 12/28/24 16:32 Miscellaneous (Carbohydrates For Hypoglycemia ) 15 - 30 gm PO UD PRN PRN Reason: Hypoglycemia Treatment Stop: 12/28/24 15:29 Miscellaneous Information (Pharmacy Glycemic Mgmt Consult) 1 each N/A UD PRN; Protocol PRN Reason: Consult Stop: 12/28/24 16:28 Ondansetron HCl (Ondansetron Inj 2 Mg/Ml 2 Ml Vial) 4 mg IV Q6H PRN PRN Reason: Nausea Stop: 12/28/24 16:32
[2024-12-01] MEDS: LOSARTAN POTASSIUM 50 MG TAB PO SCH (08:36)
--- NOTE | 2024-12-01 22:35 | Podiatry Progress Note ---
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 POD #1 - Clinically clear margins obtained with primary closure performed. - Surgical dressing will be changed Monday if inpatient. Otherwise, will f/u outpatient sometime next week. - Should likely be able to avoid residential IV antibiotics for the toe, but digit sent for pathology/culture testing as well. Results pending - Will continue to follow. Admission and Anticipated Discharge Date Admission Date: November 28, 2024 Subjective Late entry for visit POD#1 on 11/30. Doing well and in good spirits.No pain to amputation site. Anxious/eager to get home and back to work. No new s/s of infection. No new concerns Review of Systems Constitutional: + fever, + chills and + weakness; no fat igue Eyes: no problem reported Ear, Nose, Mouth, Throat: no problem reported Respiratory: no problem reported Cardiovascular: + edema; no problem reported Gastrointestinal: no nausea, no vomiting and no problem reported Musculoskeletal: no problem reported Integumentary: + skin ulcer, + wounds and + erythema Neurologic: + loss of sensation, + numbness and + pa resthesia; no generalized weakness Psychiatric: no problem reported Physical Exam Physical Exam: Dressing left intact POD #1. No ascending erythema. No drainage/strikethrough to dressing. Constitutional: WD/WN, vitals as above + ill appearing and average body habitus Eyes: PERRL, conjunctivae normal, anicteric sclerae ENMT: external ear and nose normal, oropharynx normal Neck: trachea midline, no thyromegaly normal visual inspection Respiratory: normal respiratory effort; no respiratory distress Cardiovascular: Rate/Rhythm: regular rate and regular rhythm Vessels: posterior tibial pulses present and dorsalis pedis pulses present Chest (Breasts): Chest: normal inspection of chest Gastrointestinal (Abdomen): Inspection/Auscultation: abdomen normal to inspection Percussion/Palpation: + abdomen tender and abdomen soft Musculoskeletal: no cyanosis or clubbing, extremities motor strength 5/5 Head/Neck/Chest: normocephalic and head atraumatic Extremities: extremities normal to inspection Neurologic: awake; + abnormal touch/pain/proprioception, + abnormal sensation to monofilament and no focal motor deficits Psychiatric: A+Ox3, euthymic affect Results & Data Results & Data Vital Signs (Past 12 Hours) Vital Signs Temp Pulse Pulse Resp BP Pulse Ox O2 Del Method 12/01/24 20:03 Room Air 12/01/24 19:46 36.5 C 92 H 18 172/85 H 95 Room Air 12/01/24 15:00 37.4 C 84 18 150/83 H 97 Room Air 12/01/24 13:24 81 12/01/24 11:15 36.7 C 77 18 156/77 H 97 Room Air
[2024-12-02 06:43] LABS: Hematocrit (blood only) 31.2 % (42.0-52.0); Hemoglobin 10.8 g/dl (14.0-18.0); Mean Corpuscular Hgb Conc 34.6 g/dL (32.0-36.0); Mean Corpuscular Volume 86.7 fL (80.0-100.0); Mean Platelet Volume 8.9 fL (9.4-12.4); Platelet Count 353 K/uL (130-400); RDW Coefficient of Variation 12.2 % (11.5-14.5); RDW Standard Deviation 39.6 fL (36.4-46.3); White Blood Count 7.87 K/ul (4.8-10.8)
[2024-12-02 06:58] LABS: BUN Creatinine Ratio 16.5 (10-20); Calcium 8.2 mg/dl (8.6-10.3); Creatinine Clr Calc Pharmacy 54.3 ml/min; Magnesium 1.8 mg/dl (1.7-2.4); Phosphorus 3.5 mg/dl (2.5-4.9); Potassium 3.9 mmol/L (3.5-5.1)
--- NOTE | 2024-12-02 18:17 | Hospitalist Progress Note ---
Date of Service December 02, 2024 Assessment & Plan (1) Diabetes: Plan Left toe osteomyelitis Bacteremia (secondary to above): WBC elevated Started on cefepime and vancomycin on admission, will cont. for now Podiatry consulted and discussed with - s/p surgery/ 2nd toe amputation on 11/29/2024 Blood cultx - Staph aureus (MSSA) + Prevotella wound culture - posit. for Staph aureus (MSSA) repeat blood cultx - negat. in 48 hrs Abx switched to zosyn ID consulted Uncontrolled diabetes/hyperglycemia: Current A1c 13.9% patient has self discontinued insulin in the past Patient was started on insulin drip initially in ED, now stopped Glycemic pharmacy consulted wellness educator consulted - recommend to DC on Metformin BID and once daily Lantus His testing supplies are over the counter so he won't need a script for that. He will need a script for insulin pen needles (32 gauge x 5/32" 4 mm) with his Lantus pen. DE will be back Monday for more teaching. Pseudohyponatremia: In the setting of hyperglycemia Na 136 on 11/29, cont. to monitor Na 134 on 12/01 and 12/02 Hypertensive urgency: Blood pressure elevated, the highest noted in the ED was 197/79 mmHg. losartan added on admission, as needed blood pressure medication. Blood pressure medication needs to be uptitrated. echo ordered given lack of prior PCP follow-ups. Echo - LV is normal in size. severe concentric LVH. LV wall motion is normal. LV EF 65-70%. Grade 1 diastolic dysfunction. Aortic valve sclerosis mild, without significant aortic valvular stenosis. The aortic root is normal in size DVT prophylaxis: Heparin subcu Full code Admission and Anticipated Discharge Date Admission Date: November 28, 2024 Subjective Pt seen in follow up of 2nd toe osteo, uncontrolled DM (hyperglycemia) Pt lying in bed in NAD S/p surgery/ amputation Today pt is feeling well, in good spirits no chest pain, shortness of breath, no abd pain, n/v Blood cultx posit. DM educator consulted Pathology pending ID consulted Review of Systems Review of Systems: All systems reviewed & are unremarkable except as noted in Subjective Physical Exam Physical Exam: GENERAL: Alert and oriented x3. NAD, on RA. HEENT: NC/AT. Pupils equal, round and reactive to light. Oral mucosa moist. NECK: No JVD, no neck masses. HEART: Regular rate and rhythm. No murmur RESPIRATORY: Normal AP diameter. No accessory muscle use. No wheezing, no crackles. ABDOMEN: Soft, bowel sounds present, nontender, no distention. NEURO: awake, alert, oriented, answers appropriately. No facial droop. Speech is clear. Moves extremities. EXTREMITIES: RLE - No edema, no erythema seen. LLE: surg. dressings applied, s/p 2nd toe amputation, Lt shoulder w/ tender rom, LUE weak. Results & Data Results & Data Vital Signs (Past 12 Hours) Vital Signs Temp Pulse Pulse Resp BP Pulse Ox O2 Del Method 12/02/24 16:21 80 12/02/24 15:00 37.3 C 79 18 145/70 H 96 Room Air 12/02/24 11:05 36.6 C 80 20 162/76 H 96 Room Air 12/02/24 07:48 Room Air 12/02/24 07:26 37.1 C 68 18 161/84 H 97 Room Air 12/02/24 06:52 73 Laboratory Results 12/02/24 12/02/24 12/02/24 Range/Units 17:07 11:55 07:57 WBC (4.8-10.8) K/ul RBC (4.70-6.10) M/uL Hgb (14.0-18.0) g/dl Hct (42.0-52.0) % MCV (80.0-100.0) fL MCH (25.0-34.0) pg MCHC (32.0-36.0) g/dL RDW Std Deviation (36.4-46.3) fL RDW Coeff of Mechelle (11.5-14.5) % Plt Count (130-400) K/uL MPV (9.4-12.4) fL Sodium (136-145) mmol/L Potassium (3.5-5.1) mmol/L Chloride (98-107) mmol/L Carbon Dioxide (21-32) mmol/L Anion Gap (3-11) BUN (6-23) mg/dl Creatinine (0.6-1.4) mg/dl Est Cr Clr Drug Dosing ml/min eGFR BUN/Creatinine Ratio (10-20) Glucose (70-99(Fasting)) mg/dl POC Glucose 97 159 H 149 H (70-99) mg/dl Calcium (8.6-10.3) mg/dl Phosphorus (2.5-4.9) mg/dl Magnesium (1.7-2.4) mg/dl 12/02/24 12/01/24 Range/Units 06:24 20:13 WBC 7.87 (4.8-10.8) K/ul RBC 3.60 L (4.70-6.10) M/uL Hgb 10.8 L (14.0-18.0) g/dl Hct 31.2 L (42.0-52.0) % MCV 86.7 (80.0-100.0) fL MCH 30.0 (25.0-34.0) pg MCHC 34.6 (32.0-36.0) g/dL RDW Std Deviation 39.6 (36.4-46.3) fL RDW Coeff of Mechelle 12.2 (11.5-14.5) % Plt Count 353 (130-400) K/uL MPV 8.9 L (9.4-12.4) fL Sodium 134 L (136-145) mmol/L Potassium 3.9 (3.5-5.1) mmol/L Chloride 103 (98-107) mmol/L Carbon Dioxide 24 (21-32) mmol/L Anion Gap 7 (3-11) BUN 20 (6-23) mg/dl Creatinine 1.21 (0.6-1.4) mg/dl Est Cr Clr Drug Dosing 54.3 ml/min eGFR 62.05 BUN/Creatinine Ratio 16.5 (10-20) Glucose 126 H (70-99(Fasting)) mg/dl POC Glucose 140 H (70-99) mg/dl Calcium 8.2 L (8.6-10.3) mg/dl Phosphorus 3.5 (2.5-4.9) mg/dl Magnesium 1.8 (1.7-2.4) mg/dl Medications Administered Current Inpatient Medications Acetaminophen (Acetaminophen 325 Mg Tab) 650 mg PO Q4H PRN PRN Reason: Pain or Fever Stop: 12/28/24 16:32 Last Admin: 11/30/24 04:20 Dose: 650 mg Al Hydrox/Mg Hydrox/Simethicone (Aluminum/Magnesium Susp 30 Ml Udc) 15 ml PO Q4H PRN PRN Reason: Dyspepsia Stop: 12/28/24 16:32 Dextrose (Dextrose 50% 50 Ml Syringe) 25 - 50 ml IV UD PRN; Protocol PRN Reason: Hypoglycemia Protocol Stop: 12/28/24 15:29 Diclofenac Sodium (Diclofenac Sod 1% Gel 100 Gm Tube) 2 gm EXT Q6H VIKKI; Protocol Stop: 12/28/24 19:59 Last Admin: 12/02/24 13:26 Dose: Not Given Glucagon (Glucagon For Inj 1 Mg Vial) 1 mg SQ UD PRN; Protocol PRN Reason: Hypoglycemia Protocol Stop: 12/28/24 15:29 Glucose (Glucose 40% Gel 15 Gm Tube) 15 - 30 gm PO UD PRN; Protocol PRN Reason: Hypoglycemia Protocol Stop: 12/28/24 15:29 Glucose (Glucose 10 Tab/Tube) 4 - 8 tab PO UD PRN; Protocol PRN Reason: Hypoglycemia Protocol Stop: 12/28/24 15:29 Heparin Sodium (Porcine) (Heparin Sod 5,000 Unit/0.5 Ml Vial) 5,000 units SQ Q12 VIKKI Stop: 12/28/24 20:59 Last Admin: 12/02/24 07:38 Dose: 5,000 units Hydralazine HCl (Hydralazine Hcl 20 Mg/Ml Vial) 10 mg IV Q6H PRN PRN Reason: HTN Stop: 12/28/24 16:59 Last Admin: 12/01/24 19:55 Dose: 10 mg Piperacillin Sod/Tazobactam Sod (Zosyn) 4.5 gm in 100 mls @ 25 mls/hr IV Q8H VIKKI; Protocol Stop: 01/11/25 19:59 Last Infusion: 12/02/24 15:40 Dose: Infused Insulin Aspart (Insulin Aspart Per Unit Charge) 0 units SC ACHS [facility] Stop: 12/29/24 07:44 Last Admin: 12/02/24 17:52 Dose: 9 units Insulin Glargine (Lantus Per Unit Charge) 10 units SC DAILY [facility] Stop: 12/30/24 08:59 Last Admin: 12/02/24 08:54 Dose: 10 units Lactobacillus Acidophilus (Advanced Probiotic 625 Mg Capsule) 1,250 mg PO DAILY VIKKI Stop: 12/29/24 08:59 Last Admin: 12/02/24 07:39 Dose: 1,250 mg Losartan Potassium (Losartan Potassium 50 Mg Tab) 50 mg PO QAM VIKKI Stop: 12/31/24 08:59 Last Admin: 12/02/24 07:39 Dose: 50 mg Magnesium Hydroxide (Magnesium Hydroxide Susp 30 Ml Udc) 30 ml PO Q12H PRN PRN Reason: Constipation Stop: 12/28/24 16:32 Miscellaneous (Carbohydrates For Hypoglycemia ) 15 - 30 gm PO UD PRN PRN Reason: Hypoglycemia Treatment Stop: 12/28/24 15:29 Miscellaneous Information (Pharmacy Glycemic Mgmt Consult) 1 each N/A UD PRN; Protocol PRN Reason: Consult Stop: 12/28/24 16:28 Ondansetron HCl (Ondansetron Inj 2 Mg/Ml 2 Ml Vial) 4 mg IV Q6H PRN PRN Reason: Nausea Stop: 12/28/24 16:32
[2024-12-03 07:13] LABS: BUN Creatinine Ratio 17.1 (10-20); Calcium 8.2 mg/dl (8.6-10.3); Creatinine Clr Calc Pharmacy 62.6 ml/min; Magnesium 1.8 mg/dl (1.7-2.4); Phosphorus 3.1 mg/dl (2.5-4.9)
[2024-12-03 07:18] LABS: Hematocrit (blood only) 30.2 % (42.0-52.0); Hemoglobin 10.3 g/dl (14.0-18.0); Mean Corpuscular Hgb Conc 34.1 g/dL (32.0-36.0); Mean Platelet Volume 9.4 fL (9.4-12.4); Platelet Count 357 K/uL (130-400); RDW Coefficient of Variation 12.1 % (11.5-14.5); RDW Standard Deviation 39.3 fL (36.4-46.3); Red Blood Count 3.43 M/uL (4.70-6.10); White Blood Count 7.12 K/ul (4.8-10.8)
--- NOTE | 2024-12-03 11:54 | Discharge Summary ---
Date of Service December 03, 2024 Admission HPI Per Admitting Provider 74-year-old male with prior history of diabetes diagnosed few years ago, on insulin for less than a year and self discontinued the insulin presents to the ED with complaint of worsening left second toe infection. Patient reports he has hammertoe with chronic injury at the top of left second toe with occasional small drainages. He fell on November 09 and hit his left shoulder and left toe, denies head trauma and loss of consciousness. He tripped on ice. Patient reports initially there was blue and blacl discoloration at the base of the second toe, and he sustained wound at the site of prior chronic injury which worsened for a few days and then got better. He started having fever since November 11 daily, and he had no fever since last few days [employer] and again developed fever last evening, measured at one 101.9F. Now the blue-black discoloration has disappeared and the wound has enlarged in the second toe with purulent drainage, erythematous second toe spreading to the entire foot along with swelling. Patient reports that he never feels pain in his lower extremities since many years. So he does not complain of pain. Patient denies nausea/vomiting/belly pain/acute changes in bowel or bladder or appetite habits. Patient denies tobacco use/alcohol use/recreational drug use. Full code Patient self discontinued his insulin in the past, is not on any oral medications at home per pt. Plan of care discussed with the patient and his at bedside who voiced understanding and was agreeable. Admission Exam Per Admitting Provider GENERAL: Alert and oriented x3. NAD, on RA. HEENT: No pallor, no icterus. Pupils equal, round and reactive to light. Oral mucosa moist. NECK: No JVD, no neck masses. HEART: S1 and S2 heard. Regular rate and rhythm. No murmur, no gallop. RESPIRATORY SYSTEM: Normal AP diameter. No accessory muscle use. No wheezing, no crackles. ABDOMEN: Soft, bowel sounds present, nontender, no distention. CENTRAL NERVOUS SYSTEM: No facial droop. Speech is clear. Obeys simple commands. Moves extremities. EXTREMITIES: RLE - No edema, no erythema seen. LLE: left 2nd toe w/ purulent wound, erythema/swelling spreading to the foot and distal leg. Non tender. Lt shoulder w/ tender rom, LUE weak. Principal Diagnosis Toe osteomyelitis, s/p amputation Uncontrolled diabetes mellitus Uncontrolled hypertension Discharge Exam GENERAL: Alert and oriented x3. NAD, on RA. HEENT: NC/AT. Pupils equal, round and reactive to light. Oral mucosa moist. NECK: No JVD, no neck masses. HEART: Regular rate and rhythm. No murmur RESPIRATORY: Normal AP diameter. No accessory muscle use. No wheezing, no crackles. ABDOMEN: Soft, bowel sounds present, nontender, no distention. NEURO: awake, alert, oriented, answers appropriately. No facial droop. Speech is clear. Moves extremities. EXTREMITIES: RLE - No edema, no erythema seen. LLE: surg. dressings applied, s/p 2nd toe amputation, Lt shoulder w/ tender rom, LUE weak. Discharge Data Allergies Allergy/AdvReac Type Severity Reaction Status Date / Time onion AdvReac Severe SEVERE GI Verified 11/28/24 11:39 UPSET--BLOATING, GAS DISCOMFORT Consultations 11/28/24 15:54 ED Decision to Admit Stat 11/28/24 16:30 Consult Podiatry Routine 12/02/24 14:26 Consult Infectious Diseases Routine Procedures Performed Operation Date: 11/29/24 11:35 Actual Procedures p Left Second Toe Amputation(Left) - Olivia Jack DPM Diabetes Follow up Diabetes Follow-up Needed for HgbA1c >9% Hospital Course (1) Diabetes: Plan Left toe osteomyelitis Bacteremia (secondary to above): WBC elevated Started on cefepime and vancomycin on admission, will cont. for now Podiatry consulted and discussed with - s/p surgery/ 2nd toe amputation on 11/29/2024 Blood cultx - Staph aureus (MSSA) wound culture - posit. for Staph aureus (MSSA) + Prevotella repeat blood cultx - negat. in 48 hrs Abx switched to zosyn ID consulted Uncontrolled diabetes/hyperglycemia: Current A1c 13.9% patient has self discontinued insulin in the past Patient was started on insulin drip initially in ED, now stopped Glycemic pharmacy consulted ict educator consulted - recommend to DC on Metformin BID and once daily Lantus His testing supplies are over the counter so he won't need a script for that. He will need a script for insulin pen needles (32 gauge x 5/32" 4 mm) with his Lantus pen. DE will be back Monday for more teaching. Pseudohyponatremia: In the setting of hyperglycemia Na 136 on 11/29, cont. to monitor Na 134 on 12/01 and 12/02 Na 133 on 12/03 Hypertensive urgency: Blood pressure elevated, the highest noted in the ED was 197/79 mmHg. losartan added , currently on 50 mg daily Blood pressure improved echo ordered given lack of prior PCP follow-ups. Echo - LV is normal in size. severe concentric LVH. LV wall motion is normal. LV EF 65-70%. Grade 1 diastolic dysfunction. Aortic valve sclerosis mild, without significant aortic valvular stenosis. The aortic root is normal in size Total Time Total Time Spent Total Time Spent (In Minutes): 40 Discharge Plan Discharge Items Patient Disposition: Home - Self-Care Reason For Visit: LEFT 2ND TOE WORSENING WOUND Discharge Diagnosis: Toe osteomyelitis, s/p amputation Uncontrolled diabetes mellitus Uncontrolled hypertension Condition on Discharge: Good Activity: Per Instructions section Non-emergency contact: Primary Care Provider and Surgeon Call non-emergency contact if: you have any medication questions and your symptoms worsen Follow-up/Referrals: LINDA BOWLES [Other] (As discussed, please call the office and arrange a follow up appointment within 1 week.) Diet: Carb Consistent or DM2 and Heart Healthy Addtl Attending Provider Instructions: Follow up with primary care physician and change manager (Dr. Jack). You should be seen by both providers within 1-2 weeks. Per podiatry - you should keep the bandage dry clean and intact until the first postop visit. You may ambulate as tolerated in a postop shoe. For your diabetes, take metformin 500 twice a day. Use insulin glargine daily 10 units. You will need a close follow up with your primary care physician so that your diabetes regimen can be further adjusted. For your blood pressure, take losartan 50 mg daily. Monitor your blood pressure if you are able to and record your numbers. Pending Studies at Discharge: Yes Studies:: final results of blood cultx Stand-Alone Forms: [employer], Smoking Cessation Medications and DC Order Prescriptions: New insulin glargine [Lantus Solostar U-100 Insulin] 100 unit/mL (3 mL) insulin pen 10 unit subcut DAILY Qty: 3 0RF (DME) pen needle, diabetic 32 gauge x 5/32" needle See Rx Instructions .Route Qty: 100 0RF Rx Instructions: As directed losartan 50 mg Tablet 50 mg PO QAM Qty: 30 0RF metformin 500 mg tablet extended release 24 hr 500 mg PO BID Qty: 60 0RF Continued ascorbic acid (vitamin C) [Vitamin C] 1,000 mg Tablet 1 g PO DAILY vitamin E 268 mg (400 unit) Capsule 0 mg PO DAILY Rx Instructions: PT UNSURE OF STRENGTH. cholecalciferol (vitamin D3) [Vitamin D3] 125 mcg (5,000 unit) Tablet 125 mcg PO DAILY ondansetron 4 mg tablet,disintegrating 4 mg PO Q8H PRN (Reason: nausea and vomiting) Qty: 30 0RF Admission Data Admit Date/Time: 11/28/24 16:33 Attending Provider: Justin Suggs Admit Provider: Huber Ybarra Primary Care Provider: LINDA BOWLES Other Providers: Huber Ybarra; Edin Jack; Fox Perez; Nataliia Desir; Ronald Correa I.; Wilmar Crook II; Tresa Bermudez; James Roberts; Kishor Hernandez; Evaristo Guzmán; Robert Luna; Jacob Holland
--- NOTE | 2024-12-03 16:56 | Hospitalist Progress Note ---
Date of Service December 03, 2024 Assessment & Plan (1) Diabetes: Plan Left toe osteomyelitis Bacteremia (secondary to above): WBC elevated Started on cefepime and vancomycin on admission, will cont. for now Podiatry consulted and discussed with - s/p surgery/ 2nd toe amputation on 11/29/2024 Blood cultx - Staph aureus (MSSA) wound culture - posit. for Staph aureus (MSSA) + Prevotella + Finegoldia repeat blood cultx - negat. in 48 hrs Abx switched to zosyn ID consulted and discussed with - plan to DC on IV unasyn. Consent fro PICC line obtained. CM aware and will f/u tmrw Uncontrolled diabetes/hyperglycemia: Current A1c 13.9% patient has self discontinued insulin in the past Patient was started on insulin drip initially in ED, now stopped Glycemic pharmacy consulted public health educator consulted - recommend to DC on Metformin BID and once daily Lantus His testing supplies are over the counter so he won't need a script for that. He will need a script for insulin pen needles (32 gauge x 5/32" 4 mm) with his Lantus pen -> ordered Pseudohyponatremia: In the setting of hyperglycemia Na 136 on 11/29, cont. to monitor Na 134 on 12/01 and 12/02 Na 133 on 12/03 Hypertensive urgency: Blood pressure elevated, the highest noted in the ED was 197/79 mmHg. losartan added , currently on 50 mg daily Blood pressure improved echo ordered given lack of prior PCP follow-ups. Echo - LV is normal in size. severe concentric LVH. LV wall motion is normal. LV EF 65-70%. Grade 1 diastolic dysfunction. Aortic valve sclerosis mild, without significant aortic valvular stenosis. The aortic root is normal in size Admission and Anticipated Discharge Date Admission Date: November 28, 2024 Subjective Pt seen in follow up of 2nd toe osteo, uncontrolled DM (hyperglycemia) Pt lying in bed in NAD S/p surgery/ amputation Today pt is feeling well, in good spirits no chest pain, shortness of breath, no abd pain, n/v Blood cultx posit. DM educator consulted Pathology pending- will be available tmrw ID consulted and discussed with. Pt will need 6 weeks of IV unasyn. Consent for PICC line obtained. Review of Systems Review of Systems: All systems reviewed & are unremarkable except as noted in Subjective Physical Exam Physical Exam: GENERAL: Alert and oriented x3. NAD, on RA. HEENT: NC/AT. Pupils equal, round and reactive to light. Oral mucosa moist. NECK: No JVD, no neck masses. HEART: Regular rate and rhythm. No murmur RESPIRATORY: Normal AP diameter. No accessory muscle use. No wheezing, no crackles. ABDOMEN: Soft, bowel sounds present, nontender, no distention. NEURO: awake, alert, oriented, answers appropriately. No facial droop. Speech is clear. Moves extremities. EXTREMITIES: RLE - No edema, no erythema seen. LLE: surg. dressings applied, s/p 2nd toe amputation, Lt shoulder w/ tender rom, LUE weak. Results & Data Results & Data Vital Signs (Past 12 Hours) Vital Signs Temp Pulse Pulse Resp BP BP Pulse Ox 12/03/24 16:33 88 12/03/24 15:22 36.9 C 80 18 153/83 H 97 12/03/24 11:18 36.6 C 81 16 141/74 H 96 12/03/24 10:30 12/03/24 07:50 37.0 C 81 24 183/87 H 96 12/03/24 07:24 73 O2 Del Method 12/03/24 16:33 12/03/24 15:22 Room Air 12/03/24 11:18 Room Air 12/03/24 10:30 Room Air 12/03/24 07:50 Room Air 12/03/24 07:24 Laboratory Results 12/03/24 12/03/24 12/03/24 Range/Units 12:03 08:02 06:11 WBC 7.12 (4.8-10.8) K/ul RBC 3.43 L (4.70-6.10) M/uL Hgb 10.3 L (14.0-18.0) g/dl Hct 30.2 L (42.0-52.0) % MCV 88.0 (80.0-100.0) fL MCH 30.0 (25.0-34.0) pg MCHC 34.1 (32.0-36.0) g/dL RDW Std Deviation 39.3 (36.4-46.3) fL RDW Coeff of Mechelle 12.1 (11.5-14.5) % Plt Count 357 (130-400) K/uL MPV 9.4 (9.4-12.4) fL Sodium 133 L (136-145) mmol/L Potassium 4.0 (3.5-5.1) mmol/L Chloride 104 (98-107) mmol/L Carbon Dioxide 24 (21-32) mmol/L Anion Gap 5 (3-11) BUN 18 (6-23) mg/dl Creatinine 1.05 (0.6-1.4) mg/dl Est Cr Clr Drug Dosing 62.6 ml/min eGFR 73.57 BUN/Creatinine Ratio 17.1 (10-20) Glucose 162 H (70-99(Fasting)) mg/dl POC Glucose 174 H 180 H (70-99) mg/dl Calcium 8.2 L (8.6-10.3) mg/dl Phosphorus 3.1 (2.5-4.9) mg/dl Magnesium 1.8 (1.7-2.4) mg/dl 12/02/24 12/02/24 Range/Units 20:26 17:07 WBC (4.8-10.8) K/ul RBC (4.70-6.10) M/uL Hgb (14.0-18.0) g/dl Hct (42.0-52.0) % MCV (80.0-100.0) fL MCH (25.0-34.0) pg MCHC (32.0-36.0) g/dL RDW Std Deviation (36.4-46.3) fL RDW Coeff of Mechelle (11.5-14.5) % Plt Count (130-400) K/uL MPV (9.4-12.4) fL Sodium (136-145) mmol/L Potassium (3.5-5.1) mmol/L Chloride (98-107) mmol/L Carbon Dioxide (21-32) mmol/L Anion Gap (3-11) BUN (6-23) mg/dl Creatinine (0.6-1.4) mg/dl Est Cr Clr Drug Dosing ml/min eGFR BUN/Creatinine Ratio (10-20) Glucose (70-99(Fasting)) mg/dl POC Glucose 100 H 97 (70-99) mg/dl Calcium (8.6-10.3) mg/dl Phosphorus (2.5-4.9) mg/dl Magnesium (1.7-2.4) mg/dl Medications Administered Current Inpatient Medications Acetaminophen (Acetaminophen 325 Mg Tab) 650 mg PO Q4H PRN PRN Reason: Pain or Fever Stop: 12/28/24 16:32 Last Admin: 11/30/24 04:20 Dose: 650 mg Al Hydrox/Mg Hydrox/Simethicone (Aluminum/Magnesium Susp 30 Ml Udc) 15 ml PO Q4H PRN PRN Reason: Dyspepsia Stop: 12/28/24 16:32 Dextrose (Dextrose 50% 50 Ml Syringe) 25 - 50 ml IV UD PRN; Protocol PRN Reason: Hypoglycemia Protocol Stop: 12/28/24 15:29 Diclofenac Sodium (Diclofenac Sod 1% Gel 100 Gm Tube) 2 gm EXT Q6H VIKKI; Protocol Stop: 12/28/24 19:59 Last Admin: 12/03/24 13:15 Dose: Not Given Glucagon (Glucagon For Inj 1 Mg Vial) 1 mg SQ UD PRN; Protocol PRN Reason: Hypoglycemia Protocol Stop: 12/28/24 15:29 Glucose (Glucose 40% Gel 15 Gm Tube) 15 - 30 gm PO UD PRN; Protocol PRN Reason: Hypoglycemia Protocol Stop: 12/28/24 15:29 Glucose (Glucose 10 Tab/Tube) 4 - 8 tab PO UD PRN; Protocol PRN Reason: Hypoglycemia Protocol Stop: 12/28/24 15:29 Heparin Sodium (Porcine) (Heparin Sod 5,000 Unit/0.5 Ml Vial) 5,000 units SQ Q12 VIKKI Stop: 12/28/24 20:59 Last Admin: 12/03/24 08:11 Dose: 5,000 units Hydralazine HCl (Hydralazine Hcl 20 Mg/Ml Vial) 10 mg IV Q6H PRN PRN Reason: HTN Stop: 12/28/24 16:59 Last Admin: 12/01/24 19:55 Dose: 10 mg Piperacillin Sod/Tazobactam Sod (Zosyn) 4.5 gm in 100 mls @ 25 mls/hr IV Q8H VIKKI; Protocol Stop: 01/11/25 19:59 Last Admin: 12/03/24 12:48 Dose: 25 mls/hr Insulin Aspart (Insulin Aspart Per Unit Charge) 0 units SC ACHS VIKKI Stop: 12/29/24 07:44 Last Admin: 12/03/24 12:48 Dose: 10 units Insulin Glargine (Lantus Per Unit Charge) 10 units SC DAILY [facility] Stop: 12/30/24 08:59 Last Admin: 12/03/24 08:45 Dose: 10 units Lactobacillus Acidophilus (Advanced Probiotic 625 Mg Capsule) 1,250 mg PO DAILY [facility] Stop: 12/29/24 08:59 Last Admin: 12/03/24 08:11 Dose: 1,250 mg Losartan Potassium (Losartan Potassium 50 Mg Tab) 50 mg PO QAM [facility] Stop: 12/31/24 08:59 Last Admin: 12/03/24 08:11 Dose: 50 mg Magnesium Hydroxide (Magnesium Hydroxide Susp 30 Ml Udc) 30 ml PO Q12H PRN PRN Reason: Constipation Stop: 12/28/24 16:32 Miscellaneous (Carbohydrates For Hypoglycemia ) 15 - 30 gm PO UD PRN PRN Reason: Hypoglycemia Treatment Stop: 12/28/24 15:29 Miscellaneous Information (Pharmacy Glycemic Mgmt Consult) 1 each N/A UD PRN; Protocol PRN Reason: Consult Stop: 12/28/24 16:28 Ondansetron HCl (Ondansetron Inj 2 Mg/Ml 2 Ml Vial) 4 mg IV Q6H PRN PRN Reason: Nausea Stop: 12/28/24 16:32
--- NOTE | 2024-12-03 16:58 | Infectious Disease Consult ---
Date of Service December 03, 2024 Telehealth Information I performed this visit using a real-time telehealth connection between my location and the patients location ([facility]). After connecting through interactive tele-video, patient was identified by name and date of and/or wristband check.Patient (or authorized healthcare paper sales representative) was informed that this was a telemedicine visit and it was being conducted confidentially over secure lines. My office door was closed and no one else was present in the room with me.Patient (or authorized healthcare paper sales representative) provided consent to proceed with the visit, expressed an understanding of privacy and security of the telemedicine visit, and gave permission to have a hospital paper sales representative in the room in order to assist with the visit and to conduct portions of the visit, as needed. I informed the patient (or authorized healthcare paper sales representative) that I reviewed their record and presented the opportunity for them to ask any questions regarding the visit today. The patient agreed to participate. 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 Cultures thus far growing MSSA, Finegoldia magna, prevotella bivia. we will opt to treat for a total of 6 weeks with IV antibiotics as there is likely residual osteomyelitis at the amputation site. Furthermore MSSA bacteremia subsequently cleared with TTE performed mentioning no presence of vegetation. Plan: -Discontinue Zosyn - start Unasyn 3 g IV q.6 hours - at discharge please continue Unasyn 3 g IV q.6 hours -or- Unasyn 12 g IV continuous infusion daily (CrCl 62ml/min, adjust for renal function)for a total of 6 weeks therapy from 11/29, through 01/10 - please monitor patient with weekly CBC/CMP, and CRP every 2 weeks -Would recommend Cardiology to review ECHO specifically with regards to MSSA bacteremia, if any concern please reach out to our service - ID will sign off at this time, please feel free to reach out with any further questions Case discussed with ID attending Dr. Jacquelyn Luna MD Infectious Disease PGY-5 [facility] I have discussed this patient with Dr Luna and I personally interacted with the patient via telehealth and I agree with his assessment and treatment plan History of Present Illness History of Present Illness 74-year-old male with a history of uncontrolled diabetes mellitus, hypertension presenting with left 2nd toe ulcer with drainage. Patient had injury after a fall to his left toe on the 09 of November subsequently has had a chronic nonhealing ulcer at this site. States that along with this ulcer he has had intermittent fevers with T-max prior to presentation to [facility]. he came to the hospital for evaluation after the fevers and the enlarging wound on his 2nd toe with erythema and purulent drainage. On presentation patient hemodynamically stable, afebrile (T-max 11/30 37.8 C), on room air, WBC 13.13. 11/28 XR left foot showing osteomyelitis of the 2nd toe, specifically distal aspect of the 2nd proximal phalanx and proximal aspect of the 2nd middle phalanx. 11/28 blood culture growing Staphylococcus aureus and prevotella Bivia. Patient taken to the OR with Podiatry on 11/29 and having left 2nd toe amputation performed. Left 2nd toe cultures from 11/29 growing MSSA, prevotella bivia, and Finegoldia magna. TTE performed in setting of uncontrolled hypertension which noted mild aortic valve sclerosis, no mention of vegetation. Repeat blood culture on 11/30 negative to date. Patient currently on piperacillin/tazobactam IV therapy. Allergies Allergy/AdvReac Type Severity Reaction Status Date / Time onion AdvReac Severe SEVERE GI Verified 11/28/24 11:39 UPSET--BLOATING, GAS DISCOMFORT Home Medications Medication Instructions Recorded Confirmed Type ascorbic acid (vitamin C) 1,000 mg 1 g PO DAILY 04/26/23 11/28/24 History tablet (Vitamin C) cholecalciferol (vitamin D3) 125 125 mcg PO DAILY 04/26/23 11/28/24 History mcg (5,000 unit) tablet (Vitamin D3) ondansetron 4 mg disintegrating 4 mg PO Q8H PRN nausea and 04/26/23 11/28/24 Rx tablet vomiting #30 tabs vitamin E 268 mg (400 unit) capsule 0 mg PO DAILY 04/26/23 11/28/24 History insulin glargine 100 unit/mL (3 10 unit (0.1 mL) subcut DAILY #3 mL 12/01/24 Rx mL) subcutaneous pen (Lantus Solostar U-100 Insulin) pen needle, diabetic 32 gauge x #100 ea 12/01/24 Rx 5/32" losartan 50 mg tablet 50 mg PO QAM #30 tabs 12/03/24 Rx metformin 500 mg tablet,extended 500 mg PO BID #60 tabs 12/03/24 Rx release 24 hr Patient History Medical History No pertinent family history Surgical History No pertinent past surgical history Social History Smoking Status: Never smoker Second Hand Exposure: No; Do You Dip or Chew Tobacco: No; Tobacco Cessation Education Requested by Patient: No Hx Alcohol Use: No Hx Substance Use: No Preferred Language: Thai Communication Ability: Effective Day Camp Counselor Required: No Beliefs That Will Affect Care: None Current Living Situation: Spouse Other Information That Helps Us Care for You: No Feels Safe at Home: Yes Safety Concerns: Feels Safe At This Time Assistive Devices: None Review of Systems Constitutional: No further fever, denies chills Eyes: No pain, drainage, vision change HENT: No symptoms reported Cardiovascular: No chest pain, palpitations, lower extremity swelling Respiratory: No shortness of breath, wheezing, cough, sputum production Gastrointestinal: No abdominal pain, nausea/vomiting MSK: Pain in left foot is well controlled Skin: No rash, lesions Neurological: No dizziness, weakness, confusion, sensory changes Results & Data Vital Signs (Past 12 Hours) Vital Signs Temp Pulse Pulse Resp BP BP Pulse Ox 12/03/24 16:33 88 12/03/24 15:22 36.9 C 80 18 153/83 H 97 12/03/24 11:18 36.6 C 81 16 141/74 H 96 12/03/24 10:30 12/03/24 07:50 37.0 C 81 24 183/87 H 96 12/03/24 07:24 73 O2 Del Method 12/03/24 16:33 12/03/24 15:22 Room Air 12/03/24 11:18 Room Air 12/03/24 10:30 Room Air 12/03/24 07:50 Room Air 12/03/24 07:24 Laboratory Results Laboratory Results WBC 7.12 K/ul (4.8-10.8) 12/03/24 06:11 RBC 3.43 M/uL (4.70-6.10) L 12/03/24 06:11 Hgb 10.3 g/dl (14.0-18.0) L 12/03/24 06:11 Hct 30.2 % (42.0-52.0) L 12/03/24 06:11 MCV 88.0 fL (80.0-100.0) 12/03/24 06:11 MCH 30.0 pg (25.0-34.0) 12/03/24 06:11 MCHC 34.1 g/dL (32.0-36.0) 12/03/24 06:11 RDW Std Deviation 39.3 fL (36.4-46.3) 12/03/24 06:11 RDW Coeff of Mechelle 12.1 % (11.5-14.5) 12/03/24 06:11 Plt Count 357 K/uL (130-400) 12/03/24 06:11 MPV 9.4 fL (9.4-12.4) 12/03/24 06:11 Immature Gran % (Auto) 0.4 % 11/28/24 13:44 Neut % (Auto) 72.3 % 11/28/24 13:44 Lymph % (Auto) 11.1 % 11/28/24 13:44 [place] % (Auto) 15.5 % 11/28/24 13:44 Eos % (Auto) 0.2 % 11/28/24 13:44 Baso % (Auto) 0.5 % 11/28/24 13:44 Neut # (Auto) 9.51 K/uL (1.40-6.50) H 11/28/24 13:44 Lymph # (Auto) 1.46 K/uL (1.20-3.40) 11/28/24 13:44 [place] # (Auto) 2.03 K/uL (0.11-0.59) H 11/28/24 13:44 Eos # (Auto) 0.02 K/uL (0.00-0.50) 11/28/24 13:44 Baso # (Auto) 0.06 K/uL (0.00-0.20) 11/28/24 13:44 Immature Gran # (Auto) 0.05 K/uL (0.01-0.20) 11/28/24 13:44 Sodium 133 mmol/L (136-145) L 12/03/24 06:11 Potassium 4.0 mmol/L (3.5-5.1) 12/03/24 06:11 Chloride 104 mmol/L (98-107) 12/03/24 06:11 Carbon Dioxide 24 mmol/L (21-32) 12/03/24 06:11 Anion Gap 5 (3-11) 12/03/24 06:11 BUN 18 mg/dl (6-23) 12/03/24 06:11 Creatinine 1.05 mg/dl (0.6-1.4) 12/03/24 06:11 Est Cr Clr Drug Dosing 62.6 ml/min 12/03/24 06:11 eGFR 73.57 12/03/24 06:11 BUN/Creatinine Ratio 17.1 (10-20) 12/03/24 06:11 Glucose 162 mg/dl (70-99(Fasting)) H 12/03/24 06:11 POC Glucose 174 mg/dl (70-99) H 12/03/24 12:03 Estimat Average Glucose 352 mg/dl 11/28/24 13:44 Hemoglobin A1c 13.9 % (4.5-5.6) H 11/28/24 13:44 Lactate 1.3 mmol/L (0.4-2.0) 11/28/24 15:38 Calcium 8.2 mg/dl (8.6-10.3) L 12/03/24 06:11 Phosphorus 3.1 mg/dl (2.5-4.9) 12/03/24 06:11 Magnesium 1.8 mg/dl (1.7-2.4) 12/03/24 06:11 Total Bilirubin 0.9 mg/dl (0.2-1.0) 11/28/24 13:44 AST 14 U/L (13-39) 11/28/24 13:44 ALT 11 U/L (7-52) 11/28/24 13:44 Alkaline Phosphatase 124 U/L (34-104) H 11/28/24 13:44 Total Protein 7.1 gm/dl (6.0-8.3) 11/28/24 13:44 Albumin 3.3 gm/dl (3.4-5.0) L 11/28/24 13:44 Globulin 3.8 gm/dl (2.5-4.0) 11/28/24 13:44 Albumin/Globulin Ratio 0.9 (0.9-2) 11/28/24 13:44 Procalcitonin 0.32 ng/ml (0-0.5) 11/28/24 13:44 Staphylococcus sp PCR DETECTED (NotDetected) A 11/28/24 15:38 Staph aureus (PCR) DETECTED (NotDetected) A 11/28/24 15:38 mecA/C & MREJ Resist Gene MRSA Not Detected (NotDetected) 11/28/24 15:38 Bld Cult ID Panel PCR See PCR Comment (NotDetected) 11/28/24 15:38 Impressions Foot X-Ray 11/28/24 14:34 XR foot LT min 3V routine CLINICAL HISTORY: ULCER/WOUND LEFT 2ND TOE X 1 MONTH COMPARISON: None FINDINGS: There are osseous destructive changes at the distal aspect of the second proximal phalanx and proximal aspect of the second middle phalanx. No other osseous destructive change seen. On the lateral view there is an osseous density dorsal to the distal aspect of the second proximal phalanx consistent with displaced fracture fragment from the osseous destruction. No other fracture seen. IMPRESSION: Osteomyelitis at the second toe. ACT 112: Negative or not required by law. Electronically signed by: Jerel Lewis M.D. 11/28/2024 3:57 PM Chest X-Ray 11/28/24 15:22 EXAM: XR chest 1V portable CLINICAL HISTORY: Fever TECHNIQUE: X-ray images of the chest were obtained in AP portable projections. COMPARISON: No prior studies available for comparison. FINDINGS: Pulmonary Parenchyma: Bilateral increased bronchovascular markings No evidence of conslifation, Collapse No evidence of pleural effusion or pleural thickening. Heart and Mediastinum: Heart size and shape are normal. No mediastinal widening or masses. No hilar or mediastinal lymphadenopathy. Bony Thorax: Bony thorax appears intact without fractures or deformities. Soft Tissues: Soft tissues overlying the chest wall are unremarkable. IMPRESSION: 1. Bilateral increased bronchovascular markings (nonspecific) correlate clinically. 2. No acute pulmonary abnormalties Electronically signed by Jean Lacey 11-28-2024 4:50 PM Shoulder X-Ray 11/28/24 16:32 EXAM: XR shoulder LT min 2V routine CLINICAL HISTORY: Fall, tender rom. TECHNIQUE: X-ray images of the left shoulder were obtained in anteroposterior (AP) internal, external, Y-view projections. COMPARISON: No prior studies available for comparison. FINDINGS: Bone Structure: Bone structure is normal and aligned. No evidence of fracture or dislocation. Humeral head is properly positioned in the glenoid fossa. No osseous lesions or abnormalities identified. Joint Spaces: Mild glenohumeral and acromioclavicular joints arthropathy. No evidence of joint effusion or subluxation. Soft Tissues: Soft tissues appear normal and unremarkable. No soft tissue swelling, calcifications, or foreign bodies noted. IMPRESSION: 1. No evidence of acute fracture. 2. Mild glenohumeral and acromioclavicular joints arthropathy. Disclaimer: A subtle bone abnormality or fracture may not be readily apparent on X-rays, thus clinical correlation and further imaging including follow-up CT, MRI, or follow-up X-rays are advised as needed. Electronically signed by Jean Lacey 11-29-2024 08:47 AM Diagnostic Findings Microbiology 11/29/24 Unknown Toe,Left Second Gram Stain - Final 11/29/24 Unknown Toe,Left Second Aerobic and Anaerobic Culture - Preliminary Staphylococcus aureus Prevotella bivia 11/29/24 Unknown Toe,Left Second Gram Stain - Final 11/29/24 Unknown Toe,Left Second Aerobic and Anaerobic Culture - Preliminary Staphylococcus aureus Prevotella bivia Finegoldia magna 11/28/24 15:05 Toe Gram Stain - Final 11/28/24 15:05 Toe Aerobic and Anaerobic Culture - Final Staphylococcus aureus Prevotella bivia 11/30/24 07:27 Blood Aerobic Blood Culture - Preliminary No growth in Aerobic bottle after 48 hours. 11/30/24 07:27 Blood Anaerobic Blood Culture - Preliminary No growth in Anaerobic bottle after 48 hours. 11/30/24 07:27 Blood Aerobic Blood Culture - Preliminary No growth in Aerobic bottle after 48 hours. 11/30/24 07:27 Blood Anaerobic Blood Culture - Preliminary No growth in Anaerobic bottle after 48 hours. 11/28/24 15:38 Blood Aerobic Blood Culture - Final Staphylococcus aureus 11/28/24 15:38 Blood Anaerobic Blood Culture - Final Staphylococcus aureus
[2024-12-03] MEDS: AMPICILLIN/SULBACTAM SOD 3,000 MG/100 ML BAG IV SCH (19:33)
[2024-12-04 07:50] VITALS: RESP 18; O2SAT 96
[2024-12-04] MEDS: LANTUS PER UNIT CHARGE SC SCH (09:16)
--- NOTE | 2024-12-04 09:28 | Podiatry Progress Note ---
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 POD #5 - He is doing well at this point with no systemic or local symptoms of infection. - Surgically, there is no concern for retained osteomyelitis as the entire affected digit was resected. - We will continue to follow-up with him in the office on an outpatient basis and plan suture removal at 2 weeks postoperatively. - He should continue with IV antibiotics as dictated by the infectious disease team. - With likely discharge today, his dressing was changed and his foot was cleaned and redressed. Admission and Anticipated Discharge Date Admission Date: November 28, 2024 Subjective Patient seen at bedside. Denies any current symptoms of infection. Is resting well, having blood drawn currently. Remains anxious to be discharged when possible. Review of Systems Constitutional: + fever, + chills and + weakness; no fat igue Eyes: no problem reported Ear, Nose, Mouth, Throat: no problem reported Respiratory: no problem reported Cardiovascular: + edema; no problem reported Gastrointestinal: no nausea, no vomiting and no problem reported Musculoskeletal: no problem reported Integumentary: + skin ulcer, + wounds and + erythema Neurologic: + loss of sensation, + numbness and + pa resthesia; no generalized weakness Psychiatric: no problem reported Physical Exam Physical Exam: Surgical site is clean with sutures intact and no early dehiscence noted. There is no evidence of local infection or inflammatory changes. No ascending cellulitis. No abscess formation or palpable fluctuance at the surgical site. No pain on palpation of the surgery site is noted. No drainage or bleeding was evident on the bulky dressing. Constitutional: WD/WN, vitals as above + ill appearing and average body habitus Eyes: PERRL, conjunctivae normal, anicteric sclerae ENMT: external ear and nose normal, oropharynx normal Neck: trachea midline, no thyromegaly normal visual inspection Respiratory: normal respiratory effort; no respiratory distress Cardiovascular: Rate/Rhythm: regular rate and regular rhythm Vessels: posterior tibial pulses present and dorsalis pedis pulses present Chest (Breasts): Chest: normal inspection of chest Gastrointestinal (Abdomen): Inspection/Auscultation: abdomen normal to inspection Percussion/Palpation: + abdomen tender and abdomen soft Musculoskeletal: no cyanosis or clubbing, extremities motor strength 5/5 Head/Neck/Chest: normocephalic and head atraumatic Extremities: extremities normal to inspection Neurologic: awake; + abnormal touch/pain/proprioception, + abnormal sensation to monofilament and no focal motor deficits Psychiatric: A+Ox3, euthymic affect Results & Data Results & Data Vital Signs (Past 12 Hours) Vital Signs Temp Pulse Pulse Pulse Resp BP Pulse Ox 12/04/24 08:03 77 12/04/24 07:48 36.4 C L 76 18 180/82 H 96 12/04/24 03:53 36.9 C 78 20 177/83 H 97 12/03/24 23:04 36.9 C 77 18 170/83 H 96 12/03/24 22:43 12/03/24 22:01 82 O2 Del Method 12/04/24 08:03 12/04/24 07:48 Room Air 12/04/24 03:53 Room Air 12/03/24 23:04 Room Air 12/03/24 22:43 Room Air 12/03/24 22:01 Diagnostic Findings Pathology still pending from surgery on Monday
[2024-12-04 10:20] LABS: Basophils # (auto) 0.06 K/uL (0.00-0.20); Basophils % (auto) 0.8 %; Eosinophils % (auto) 1.4 %; Hematocrit (blood only) 31.4 % (42.0-52.0); Hemoglobin 10.8 g/dl (14.0-18.0); Immature Granulocytes # (auto) 0.04 K/uL (0.01-0.20); Immature Granulocytes % (auto) 0.6 %; Lymphocytes # (auto) 1.51 K/uL (1.20-3.40); Lymphocytes % (auto) 20.8 %; Mean Corpuscular Hgb Conc 34.4 g/dL (32.0-36.0); Mean Corpuscular Volume 87.2 fL (80.0-100.0); Mean Platelet Volume 9.4 fL (9.4-12.4); Monocytes # (auto) 1.49 K/uL (0.11-0.59); Monocytes % (auto) 20.5 %; Neutrophils # (auto) 4.06 K/uL (1.40-6.50); Neutrophils % (auto) 55.9 %; Platelet Count 388 K/uL (130-400); RDW Coefficient of Variation 12.2 % (11.5-14.5); RDW Standard Deviation 39.3 fL (36.4-46.3); White Blood Count 7.26 K/ul (4.8-10.8)
[2024-12-04 10:35] LABS: BUN Creatinine Ratio 16.8 (10-20); Calcium 8.3 mg/dl (8.6-10.3); Creatinine Clr Calc Pharmacy 67.4 ml/min
[2024-12-04 11:35] VITALS: BP 164/84; TEMP 99.1
--- NOTE | 2024-12-04 13:34 | Discharge Summary ---
Discharge Summary Date of Service December 04, 2024 Principal Dx & Hospital Course #1 = Principal Diagnosis (1) Diabetes: Plan Left toe osteomyelitis Bacteremia (secondary to above): WBC elevated Foot xray noting osteomyelitis of the second toe. Started on cefepime and vancomycin on admission Podiatry was consulted: - s/p surgery/ 2nd toe amputation on 11/29/2024 Blood cultures - Staph aureus (MSSA) wound culture - grew Staph aureus (MSSA) + Prevotella + Finegoldia repeat blood cultures- no growth to date Echo on admission with no mention of signs of endocarditis Abx switched to zosyn and ID was consulted ID consulted, recommended/stated the following: "...- at discharge please continue Unasyn 3 g IV q.6 hours -or- Unasyn 12 g IV continuous infusion daily (CrCl 62ml/min, adjust for renal function)for a total of 6 weeks therapy from 11/29, through 01/10 - please monitor patient with weekly CBC/CMP, and CRP every 2 weeks..." On the day of discharge, PICC line was placed and pt was discharged with home health services for his IV antibiotics. Close PCP and poditatry followup as noted above after discharge. Uncontrolled diabetes/hyperglycemia Current A1c 13.9% patient has self discontinued insulin in the past Patient was started on insulin drip initially in ED, now stopped Glycemic pharmacy consulted coding educator consulted - recommend to DC on Metformin BID and once daily Lantus Close PCP followup- consider MTM Diabetes management after discharge. Pseudohyponatremia: In the setting of hyperglycemia Resolved on discharge Hypertensive urgency: Blood pressure elevated, the highest noted in the ED was 197/79 mmHg. losartan added , currently on 50 mg daily Blood pressure improved echo ordered given lack of prior PCP follow-ups. Echo - LV is normal in size. severe concentric LVH. LV wall motion is normal. LV EF 65-70%. Grade 1 diastolic dysfunction. Aortic valve sclerosis mild, without significant aortic valvular stenosis. The aortic root is normal in size Discharged with losartan 50mg daily with close PCP followup for continued monitoring. Notes For Next Care Provider Medication Changes From Visit IV Unasyn 3g q6h until January 10 losartan 50mg daily metformin 500mg BID Lantus 10U daily Admission HPI Per Admitting Provider 74-year-old male with prior history of diabetes diagnosed few years ago, on insulin for less than a year and self discontinued the insulin presents to the ED with complaint of worsening left second toe infection. Patient reports he has hammertoe with chronic injury at the top of left second toe with occasional small drainages. He fell on November 09 and hit his left shoulder and left toe, denies head trauma and loss of consciousness. He tripped on ice. Patient reports initially there was blue and blacl discoloration at the base of the second toe, and he sustained wound at the site of prior chronic injury which worsened for a few days and then got better. He started having fever since November 11 daily, and he had no fever since last few days [employer] and again developed fever last evening, measured at one 101.9F. Now the blue-black discoloration has disappeared and the wound has enlarged in the second toe with purulent drainage, erythematous second toe spreading to the entire foot along with swelling. Patient reports that he never feels pain in his lower extremities since many years. So he does not complain of pain. Patient denies nausea/vomiting/belly pain/acute changes in bowel or bladder or appetite habits. Patient denies tobacco use/alcohol use/recreational drug use. Full code Patient self discontinued his insulin in the past, is not on any oral medication s at home per pt. Plan of care discussed with the patient and his at bedside who voiced understanding and was agreeable. Admission Exam Per Admitting Provider GENERAL: Alert and oriented x3. NAD, on RA. HEENT: No pallor, no icterus. Pupils equal, round and reactive to light. Oral mucosa moist. NECK: No JVD, no neck masses. HEART: S1 and S2 heard. Regular rate and rhythm. No murmur, no gallop. RESPIRATORY SYSTEM: Normal AP diameter. No accessory muscle use. No wheezing, no crackles. ABDOMEN: Soft, bowel sounds present, nontender, no distention. CENTRAL NERVOUS SYSTEM: No facial droop. Speech is clear. Obeys simple commands. Moves extremities. EXTREMITIES: RLE - No edema, no erythema seen. LLE: left 2nd toe w/ purulent wound, erythema/swelling spreading to the foot and distal leg. Non tender. Lt shoulder w/ tender rom, LUE weak. Discharge Exam General: Alert, oriented. No acute distress Psych: Appropriate mood and affect Neuro: difficulty with movements HEENT: NC/AT CV: RRR Resp: Breath sounds clear bilaterally, no increased effort of breathing Abdomen: Soft, nontender Extremities: left foot with 2nd toe amputation Updated Medication List Medication Instructions Recorded Confirmed Type ascorbic acid (vitamin C) 1,000 mg 1 g PO DAILY 04/26/23 11/28/24 History tablet (Vitamin C) cholecalciferol (vitamin D3) 125 125 mcg PO DAILY 04/26/23 11/28/24 History mcg (5,000 unit) tablet (Vitamin D3) ondansetron 4 mg disintegrating 4 mg PO Q8H PRN nausea and 04/26/23 11/28/24 Rx tablet vomiting #30 tabs vitamin E 268 mg (400 unit) capsule 0 mg PO DAILY 04/26/23 11/28/24 History insulin glargine 100 unit/mL (3 10 unit (0.1 mL) subcut DAILY #3 mL 12/01/24 Rx mL) subcutaneous pen (Lantus Solostar U-100 Insulin) pen needle, diabetic 32 gauge x #100 ea 12/01/24 Rx 5/32" losartan 50 mg tablet 50 mg PO QAM #30 tabs 12/03/24 Rx metformin 500 mg tablet,extended 500 mg PO BID #60 tabs 12/03/24 Rx release 24 hr Hospital Stay Data Consultations 11/28/24 15:54 ED Decision to Admit Stat 11/28/24 16:30 Consult Podiatry Routine 12/02/24 14:26 Consult Infectious Diseases Routine Procedures Performed Operation Date: 11/29/24 11:35 Actual Procedures p Left Second Toe Amputation(Left) - Olivia Jack DPM Diagnostic Imagining Performed Foot X-Ray 11/28/24 14:34 XR foot LT min 3V routine CLINICAL HISTORY: ULCER/WOUND LEFT 2ND TOE X 1 MONTH COMPARISON: None FINDINGS: There are osseous destructive changes at the distal aspect of the second proximal phalanx and proximal aspect of the second middle phalanx. No other osseous destructive change seen. On the lateral view there is an osseous density dorsal to the distal aspect of the second proximal phalanx consistent with displaced fracture fragment from the osseous destruction. No other fracture seen. IMPRESSION: Osteomyelitis at the second toe. ACT 112: Negative or not required by law. Electronically signed by: Jerel Lewis M.D. 11/28/2024 3:57 PM Chest X-Ray 11/28/24 15:22 EXAM: XR chest 1V portable CLINICAL HISTORY: Fever TECHNIQUE: X-ray images of the chest were obtained in AP portable projections. COMPARISON: No prior studies available for comparison. FINDINGS: Pulmonary Parenchyma: Bilateral increased bronchovascular markings No evidence of conslifation, Collapse No evidence of pleural effusion or pleural thickening. Heart and Mediastinum: Heart size and shape are normal. No mediastinal widening or masses. No hilar or mediastinal lymphadenopathy. Bony Thorax: Bony thorax appears intact without fractures or deformities. Soft Tissues: Soft tissues overlying the chest wall are unremarkable. IMPRESSION: 1. Bilateral increased bronchovascular markings (nonspecific) correlate clinically. 2. No acute pulmonary abnormalties Electronically signed by Jean Lacey 11-28-2024 4:50 PM Shoulder X-Ray 11/28/24 16:32 EXAM: XR shoulder LT min 2V routine CLINICAL HISTORY: Fall, tender rom. TECHNIQUE: X-ray images of the left shoulder were obtained in anteroposterior (AP) internal, external, Y-view projections. COMPARISON: No prior studies available for comparison. FINDINGS: Bone Structure: Bone structure is normal and aligned. No evidence of fracture or dislocation. Humeral head is properly positioned in the glenoid fossa. No osseous lesions or abnormalities identified. Joint Spaces: Mild glenohumeral and acromioclavicular joints arthropathy. No evidence of joint effusion or subluxation. Soft Tissues: Soft tissues appear normal and unremarkable. No soft tissue swelling, calcifications, or foreign bodies noted. IMPRESSION: 1. No evidence of acute fracture. 2. Mild glenohumeral and acromioclavicular joints arthropathy. Disclaimer: A subtle bone abnormality or fracture may not be readily apparent on X-rays, thus clinical correlation and further imaging including follow-up CT, MRI, or follow-up X-rays are advised as needed. Electronically signed by Jean Lacey 11-29-2024 08:47 AM Pending Results Patient Have Any Pending Studies at Discharge: Yes Discharge Instructions Given to Patient (Per Discharging Provider) Please continue with the IV antibiotic regimen until January 10, 2025. You will have weekly labs while on it and the PICC line will be taken out once you complete treatment. Please follow up with your primary care provider about the lab results. Follow up with primary care physician and relief charge nurse (Dr. Jack). You should be seen by both providers within 1-2 weeks. Per podiatry - you should keep the bandage dry clean and intact until the first postop visit. You may ambulate as tolerated in a postop shoe. For your diabetes, take metformin 500mg twice a day. Use insulin glargine daily 10 units. You will need a close follow up with your primary care physician so that your diabetes regimen can be further adjusted. For your blood pressure, take losartan 50 mg daily. Monitor your blood pressure if you are able to and record your numbers. Total Time Total Time Spent Total Time Spent (In Minutes): 60
[2024-12-04 15:27] VITALS: PULSE 74
== END 2024-12-04 16:40 | disposition home or self-care (01) | DRG 617 ==
LOC: ED 12:25 → EDINP 16:33 → SUATTDRO 16:33 → 2N 19:51